=== PATIENT | male | born 1975 | race Native Hawaiian/Other Pacific Islander ===

== ENCOUNTER 2021-11-15 21:50 | Emergency (ER) | payer MEDICARE ==
--- NOTE | 2021-11-15 21:54 | ERPHSYRPT ---
- History of Present Illness Time Seen by Provider: 11/15/21 21:54 Source: patient Exam Limitations: no limitations Physician History: This is an overweight 46-year-old white male patient who has a history of hypertension and hyperglycemia issues and presents normotensive and normoglycemic. Patient states that over the last month, intermittently, he feels dizzy as if he is going to pass out. 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 He currently has no chest pain. He has no abdominal pain. He has no nausea vomiting or diarrhea. Currently, he does not have those symptoms. He has been seen and evaluated by the [facility] and an outpatient nurse practitioner as recent as this morning. He feels he needs a more thorough work-up and that is why he came to the emergency department. Timing/Duration: intermittent, other (Present over a month.) Severity: mild Associated Symptoms: denies symptoms, other (He denies symptoms now but he has felt as though he was going to pass out intermittently in the last 4 weeks.) Travel Risk - International Travel Have you traveled outside of the country in past 3 weeks: No - Coronavirus Screening Are you exhibiting any of the following symptoms?: No Close contact with a COVID-19 positive Pt in past 14-21 Days: No - Review of Systems Constitutional: No Symptoms Eyes: No Symptoms Ears, Nose, & Throat: No Symptoms Respiratory: No Symptoms Cardiac: No Symptoms Abdominal/Gastrointestinal: No Symptoms Genitourinary Symptoms: No Symptoms Musculoskeletal: No Symptoms Skin: No Symptoms Neurological: No Symptoms Psychological: No Symptoms Endocrine: No Symptoms Hematologic/Lymphatic: No Symptoms Immunological/Allergic: No Symptoms All Other Systems: Reviewed and Negative - Past Medical History Pertinent Past Medical History: Yes - Past Surgical History Past Surgical History: Yes - Nursing Vital Signs Nursing Vital Signs: Initial Vital Signs Temperature 97.3 F 11/15/21 22:04 Pulse Rate 65 11/15/21 22:04 Respiratory Rate 16 11/15/21 22:04 Blood Pressure 134/81 11/15/21 22:04 O2 Sat by Pulse Oximetry 100 11/15/21 22:04 Pain Scale Pain Intensity 0 - Physical Exam General Appearance: no apparent distress, alert, anxiety, obese Eye Exam: PERRL/EOMI, eyes nml inspection Ears, Nose, Throat Exam: normal ENT inspection, moist mucous membranes Neck Exam: normal inspection, non-tender, supple, full range of motion Respiratory Exam: normal breath sounds, lungs clear, airway intact, No chest tenderness, No respiratory distress Cardiovascular Exam: regular rate/rhythm, normal heart sounds, normal peripheral pulses Gastrointestinal/Abdomen Exam: soft, normal bowel sounds, No tenderness Rectal Exam: not done Back Exam: normal inspection, normal range of motion, No CVA tenderness, No vertebral tenderness Extremity Exam: normal inspection, normal range of motion, pelvis stable Neurologic Exam: alert, oriented x 3, cooperative, creative perfumer II-XII nml as tested, normal mood/affect, nml cerebellar function, nml station & gait, sensation nml Skin Exam: normal color, warm, dry Lymphatic Exam: No adenopathy SpO2 Interpretation: normal O2 Delivery: Room Air - Course Nursing assessment & vital signs reviewed: Yes EKG Interpreted by Me: RATE (70), Sinus Rhythm, NORMAL AXIS, NORMAL INTERVALS, NORMAL QRS, NORMAL ST-T, Other Ordered Tests: Active Orders 24 hr Category Date Time Status EKG-ER Only STAT Care 11/15/21 22:51 Active IV Insertion STAT Care 11/15/21 22:51 Active POCT Glucose Check STAT Care 11/15/21 22:25 Active HEAD WITHOUT CONTRAST [CT] Stat Exams 11/15/21 22:52 Taken CBC W DIFF Stat Lab 11/15/21 23:00 Completed CMP Stat Lab 11/15/21 23:00 Completed POCT GLUCOSE Stat Lab 11/15/21 22:25 Completed TROPONIN Q4H Lab 11/15/21 23:00 Completed TROPONIN Q4H Lab 11/16/21 03:00 Ordered TROPONIN Q4H Lab 11/16/21 07:00 Ordered UA W/RFX CULTURE Stat Lab 11/15/21 23:18 Completed Lab/Rad Data: Laboratory Result Diagrams 11/15/21 23:00 11/15/21 23:00 Laboratory Results 11/15/21 11/15/21 11/15/21 Range/Units 23:18 23:00 23:00 WBC (4.0-10.5) x10^3/uL RBC (4.1-5.6) x10^6/uL Hgb (12.5-18.0) g/dL Hct (42-50) % MCV (78-100) fL MCH (26-32) pg MCHC (32-36) g/dL RDW (11.5-14.0) % Plt Count (150-450) x10^3/uL MPV (7.5-11.0) fL Gran % (36.0-66.0) % Immature Gran % (Auto) (0.00-0.4) % Nucleat RBC Rel Count (0.00-0.1) % Eos # (Auto) (0-0.5) x10^3/uL Immature Gran # (Auto) (0.00-0.03) x10^3u/L Absolute Lymphs (auto) (1.0-4.6) x10^3/uL Absolute Monos (auto) (0.0-1.3) x10^3/uL Absolute Nucleated RBC (0.00-0.01) x10^3u/L Lymphocytes % (24.0-44.0) % Monocytes % (0.0-12.0) % Eosinophils % (0.00-5.0) % Basophils % (0.0-0.4) % Absolute Granulocytes (1.4-6.9) x10^3/uL Basophils # (0-0.4) x10^3/uL Sodium 139 (137-145) mmol/L Potassium 4.0 (3.5-5.1) mmol/L Chloride 104 (98-107) mmol/L Carbon Dioxide 22 (22-30) mmol/L Anion Gap 16.8 H (5-15) MEQ/L BUN 16 (9-20) mg/dL Creatinine 1.18 (0.66-1.25) mg/dL Estimated GFR > 60.0 ML/MIN Glucose 137 H (74-106) mg/dL POC Glucometer (74 to 106) mg/dL Calcium 9.6 (8.4-10.2) mg/dL Total Bilirubin 0.50 (0.2-1.3) mg/dL AST 40 (17-59) U/L ALT 66 H (0-50) U/L Alkaline Phosphatase 71 (38-126) U/L Troponin I < 0.012 (0.000-0.034) ng/mL Serum Total Protein 8.1 (6.3-8.2) g/dL Albumin 4.6 (3.5-5.0) g/dL Urinalys Dipstick Clnc MAIN LAB Urine Color YELLOW (YELLOW) Urine Appearance CLEAR (CLEAR) Urine pH 6.0 (5-6) Ur Specific [place] 1.020 (1.005-1.025) POC Urine Protein Conf NEGATIVE (Negative) Urine Ketones NEGATIVE (NEGATIVE) Urine Nitrite NEGATIVE (NEGATIVE) Urine Bilirubin NEGATIVE (NEGATIVE) Urine Urobilinogen 1 (0-1) mg/dL Urine Leukocytes NEGATIVE (NEGATIVE) Urine WBC (Auto) 0-2 (0-5) /HPF Urine RBC (Auto) 0-2 (0-2) /HPF U Epithel Cells (Auto) Not Reportable Urine Bacteria (Auto) NONE (NEGATIVE) /HPF Urine RBC NEGATIVE (0-5) Brennan/ul Ur Culture Indicated? NO Urine Glucose NEGATIVE (NEGATIVE) mg/dL 11/15/21 11/15/21 Range/Units 23:00 22:25 WBC 10.4 (4.0-10.5) x10^3/uL RBC 5.31 (4.1-5.6) x10^6/uL Hgb 16.2 (12.5-18.0) g/dL Hct 49.0 (42-50) % MCV 92.3 (78-100) fL MCH 30.5 (26-32) pg MCHC 33.1 (32-36) g/dL RDW 13.2 (11.5-14.0) % Plt Count 271 (150-450) x10^3/uL MPV 10.3 (7.5-11.0) fL Gran % 54.0 (36.0-66.0) % Immature Gran % (Auto) 0.4 (0.00-0.4) % Nucleat RBC Rel Count 0.0 (0.00-0.1) % Eos # (Auto) 0.31 (0-0.5) x10^3/uL Immature Gran # (Auto) 0.04 H (0.00-0.03) x10^3u/L Absolute Lymphs (auto) 3.16 (1.0-4.6) x10^3/uL Absolute Monos (auto) 1.16 (0.0-1.3) x10^3/uL Absolute Nucleated RBC 0.00 (0.00-0.01) x10^3u/L Lymphocytes % 30.4 (24.0-44.0) % Monocytes % 11.1 (0.0-12.0) % Eosinophils % 3.0 (0.00-5.0) % Basophils % 1.1 (0.0-0.4) % Absolute Granulocytes 5.63 (1.4-6.9) x10^3/uL Basophils # 0.11 (0-0.4) x10^3/uL Sodium (137-145) mmol/L Potassium (3.5-5.1) mmol/L Chloride (98-107) mmol/L Carbon Dioxide (22-30) mmol/L Anion Gap (5-15) MEQ/L BUN (9-20) mg/dL Creatinine (0.66-1.25) mg/dL Estimated GFR ML/MIN Glucose (74-106) mg/dL POC Glucometer 133 H (74 to 106) mg/dL Calcium (8.4-10.2) mg/dL Total Bilirubin (0.2-1.3) mg/dL AST (17-59) U/L ALT (0-50) U/L Alkaline Phosphatase (38-126) U/L Troponin I (0.000-0.034) ng/mL Serum Total Protein (6.3-8.2) g/dL Albumin (3.5-5.0) g/dL Urinalys Dipstick Clnc Urine Color (YELLOW) Urine Appearance (CLEAR) Urine pH (5-6) Ur Specific [place] (1.005-1.025) POC Urine Protein Conf (Negative) Urine Ketones (NEGATIVE) Urine Nitrite (NEGATIVE) Urine Bilirubin (NEGATIVE) Urine Urobilinogen (0-1) mg/dL Urine Leukocytes (NEGATIVE) Urine WBC (Auto) (0-5) /HPF Urine RBC (Auto) (0-2) /HPF U Epithel Cells (Auto) Urine Bacteria (Auto) (NEGATIVE) /HPF Urine RBC (0-5) Brennan/ul Ur Culture Indicated? Urine Glucose (NEGATIVE) mg/dL - Progress Progress: unchanged, re-examined Progress Note: 11/15/21 23:58 CT scan of the head without contrast shows no acute intracranial abnormality. Counseled pt/family regarding: lab results, diagnosis, need for follow-up, rad results - Departure Departure Disposition: Home Clinical Impression: Near syncope Condition: Stable Critical Care Time: No Referrals: DOCTOR,NO FAMILY [Primary Care Provider] - Follow up/PCP as directed Additional Instructions: Wear of the Holter monitor as instructed. Continue your medication and monitoring of your blood sugar and blood pressure as instructed. Monitor your blood pressure 3 times a day only (morning noon and night) and keep a daily log of these values. Follow-up with the [facility] or your outpatient nurse practitioner on 11/18/2021 for further evaluation management.
[2021-11-15 23:08] LABS: Absolute Neutrophil Ct (ANC) 5.63 x10^3/uL (1.4-6.9); Basophil (Absolute #) 0.11 x10^3/uL (0-0.4); Eosinophil (Absolute #) 0.31 x10^3/uL (0-0.5); Hemoglobin 16.2 g/dL (12.5-18.0); Lymphocyte (Absolute #) 3.16 x10^3/uL (1.0-4.6); Lymphocytes % 30.4 % (24.0-44.0); Mean Cell Volume 92.3 fL (78-100); Mean Corpuscular Hemoglobin 30.5 pg (26-32); Mean Corpuscular Hgb Concent. 33.1 g/dL (32-36); Mean Platelet Volume 10.3 fL (7.5-11.0); Monocyte (Absolute #) 1.16 x10^3/uL (0.0-1.3); Monocytes % 11.1 % (0.0-12.0); Platelet Count 271 x10^3/uL (150-450); Red Blood Count 5.31 x10^6/uL (4.1-5.6); Red Cell Distribution Width 13.2 % (11.5-14.0); White Blood Count 10.4 x10^3/uL (4.0-10.5)
[2021-11-15 23:23] LABS: ALBUMIN 4.6 g/dL (3.5-5.0); ALKALINE PHOSPHATASE 71 U/L (38-126); ANION GAP 16.8 MEQ/L (5-15); BLOOD UREA NITROGEN 16 mg/dL (9-20); CHLORIDE 104 mmol/L (98-107); Calcium 9.6 mg/dL (8.4-10.2); Carbon Dioxide 22 mmol/L (22-30); Creatinine 1 1.18 mg/dL (0.66-1.25); EST GLOMERULAR FILTRATION RATE > 60.0 ML/MIN; Glucose 137 mg/dL (74-106); SGOT/AST 40 U/L (17-59); SGPT/ALT 66 U/L (0-50); SODIUM 139 mmol/L (137-145); Total Protein 8.1 g/dL (6.3-8.2)
[2021-11-15 23:23] LABS: Appearance CLEAR (CLEAR); Glucose NEGATIVE (NEGATIVE)
[2021-11-15 23:24] LABS: Bilirubin NEGATIVE (NEGATIVE); Dipstick done @ ? MAIN LAB; Ketones NEGATIVE (NEGATIVE); Nitrite NEGATIVE (NEGATIVE); Protein,Urine Dip NEGATIVE (Negative); RBC NEGATIVE Ery/ul (0-5); Urobilinogen 1 mg/dL (0-1)
[2021-11-15 23:25] LABS: RBC 0-2 /HPF (0-2); WBC 0-2 /HPF (0-5)
[2021-11-15 23:28] LABS: Urine Cultured Indicated? NO
[2021-11-16 00:05] VITALS: BP 120/76; PULSE 76; O2SAT 95
--- NOTE | 2021-11-16 06:04 | XRAY ---
Indication: Near syncope. Hypertension. Multiple contiguous axial images obtained through the head without contrast. Comparison: None Normal appearing brain parenchyma, ventricles, and bony calvarium for patient's age. Partially visualized 2.2 cm right maxillary sinus polyp/retention cyst. Remaining visualized paranasal sinuses and mastoid air cells are clear. Impression: Normal CT head without contrast exam. Incidental right maxillary sinus polyp/retention cyst. Comment: Preliminary interpretation made by [facility]. No critical discrepancy.
== END 2021-11-16 00:31 | disposition home or self-care (01) ==
LOC: ED 21:50
DX: R55 Syncope and collapse (principal); R42 Dizziness and giddiness
CPT/HCPCS: 36000; 36415; 70450; 80053; 80061; 81015; 82947; 83036; 83721; 84443; 84484; 85025; 93005; 93225; 99284

== ENCOUNTER 2021-11-19 19:06 | Emergency (ER) | payer MEDICARE ==
[2021-11-19 20:11] VITALS: O2SAT 97
--- NOTE | 2021-11-19 20:45 | ERPHSYRPT ---
- History of Present Illness Time Seen by Provider: 11/19/21 19:30 Source: patient Exam Limitations: no limitations Patient Subjective Stated Complaint: pt states that he has been feeling headache and uncontrolled blood sugar and dizziness since october. pt states he was never diagnosed with diabetes. states his hba1c was 5.8 when he was here in the ER on thursday. pt states he was told to come back to ER if his symptoms as mentioned above returned. Triage Nursing Assessment: pt alert and oriented, able to answer all queations appropriatly. Pt is stating that hew feels that his blood sugar is going back up at this time as he is having a headache and feeling anxious, states the pain in his head is 4/10. Physician History: Patient a 46-year-old male presents to emergency department for evaluation. Patient was in our ED for the same complaints. Patient is experiencing intermittent spikes of headache sugar dizziness and anxiety. Patient had a complete work-up in our ED last Thursday 4 days ago. The work-up was negative. Patient here in our ED with the same complaints. Patient currently asymptomatic. Symptoms are mild to moderate when present. No specific worsening improving factors. Patient voices no other complaints or concerns at this time. Portions of this note were created with voice recognition technology. There may be grammatical, spelling, punctuation or sound alike errors Timing/Duration: today Severity: mild Modifying Factors: Improves With: nothing Associated Symptoms: denies symptoms Allergies/Adverse Reactions: soft drinks Allergy (Uncoded 11/19/21 19:38) Hx Tetanus, Diphtheria Vaccination/Date Given: Yes Hx Influenza Vaccination/Date Given: No Hx Pneumococcal Vaccination/Date Given: No Travel Risk - International Travel Have you traveled outside of the country in past 3 weeks: No - Coronavirus Screening Are you exhibiting any of the following symptoms?: No Close contact with a COVID-19 positive Pt in past 14-21 Days: No - Vaccine Status Have you recieved a Covid-19 vaccination: Yes Child [employer] 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 - Vaccination Dates Date of 2cond Vaccination (if applicable): unknown - Review of Systems Constitutional: No Symptoms, No Fever, No Chills Eyes: No Symptoms Ears, Nose, & Throat: No Symptoms Respiratory: No Symptoms, No Cough, No Dyspnea Cardiac: No Symptoms, No Chest Pain, No Edema, No Syncope Abdominal/Gastrointestinal: No Symptoms, No Abdominal Pain, No Nausea, No Vomiting, No Diarrhea Genitourinary Symptoms: No Symptoms, No Dysuria Musculoskeletal: No Symptoms, No Back Pain, No Neck Pain Skin: No Symptoms, No Rash Neurological: No Symptoms, No Dizziness, No Focal Weakness, No Sensory Changes Psychological: No Symptoms Endocrine: No Symptoms Hematologic/Lymphatic: No Symptoms Immunological/Allergic: No Symptoms All Other Systems: Reviewed and Negative - Past Medical History Pertinent Past Medical History: Yes Other Medical History: chronic back pain with radiopathy. 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 ptsd - Past Surgical History Past Surgical History: Yes Other Surgical History: l5 s1 discectomy - Social History Smoking Status: Former smoker Exposure to second hand smoke: No Drug Use: none Patient Lives Alone: Yes - Nursing Vital Signs Nursing Vital Signs: Initial Vital Signs Temperature 97.8 F 11/19/21 19:22 Pulse Rate 76 11/19/21 19:22 Respiratory Rate 18 11/19/21 19:22 Blood Pressure 149/72 11/19/21 19:22 O2 Sat by Pulse Oximetry 98 11/19/21 19:22 Pain Scale Pain Intensity 4 - Physical Exam General Appearance: no apparent distress, alert Eye Exam: PERRL/EOMI, eyes nml inspection Ears, Nose, Throat Exam: normal ENT inspection, TMs normal, pharynx normal, moist mucous membranes Neck Exam: normal inspection, non-tender, supple, full range of motion Respiratory Exam: normal breath sounds, lungs clear, airway intact, No respiratory distress Cardiovascular Exam: regular rate/rhythm, normal heart sounds, normal peripheral pulses Gastrointestinal/Abdomen Exam: soft, normal bowel sounds, No tenderness, No mass Back Exam: normal inspection, normal range of motion, No CVA tenderness, No vertebral tenderness Extremity Exam: normal inspection, normal range of motion, pelvis stable Neurologic Exam: alert, oriented x 3, cooperative, normal mood/affect, nml cerebellar function, nml station & gait, sensation nml, No motor deficits Skin Exam: normal color, warm, dry, No rash Lymphatic Exam: No adenopathy SpO2 Interpretation: normal SpO2: 97 O2 Delivery: Room Air - Course Nursing assessment & vital signs reviewed: Yes Ordered Tests: Active Orders 24 hr Category Date Time Status POCT GLUCOSE Stat Lab 11/19/21 19:42 Completed Lab/Rad Data: Laboratory Results 11/19/21 Range/Units 19:42 POC Glucometer 123 H (74 to 106) mg/dL - Progress Progress: improved Progress Note: Patient symptomology concerning for possible pheochromocytoma. This will require an extensive outpatient work-up. [facility] however [facility] months. Patient tried to get in with Dr. Mcmahon however they are not excepting patients at this time. I spoke to Dr. Francois who accepts new patients. She agrees to see patient next week for further evaluation and treatment. No work-up performed in our ED. Portions of this note were created with voice recognition technology. There may be grammatical, spelling, punctuation or sound alike errors 11/19/21 21:14 11/19/21 21:[address] Tammy Will see patient in: office Counseled pt/family regarding: need for follow-up - Departure Departure Disposition: Home Clinical Impression: Encounter for medical screening examination, Essential hypertension Condition: Stable Critical Care Time: No Referrals: DOCTOR,NO FAMILY [Primary Care Provider] - Follow up/PCP as directed MORGAN SIMONS DO [ACTIVE STAFF] - Follow up/PCP as directed Additional Instructions: Discharge/Care Plan WENDI MATHEWS was seen on 11/19/21 in the Emergency Room. The patient was counseled regarding Diagnosis,Lab results, Imaging studies, need for follow up and when to return to the Emergency Room. Prescriptions given: Discharge Note I have spoken with the patient and/or caregivers. I have explained the patient's condition, diagnosis and treatment plan based on the information available to me at this time. I have answered the patient's and/or caregiver's questions and addressed any concerns. The patient and/or caregivers have as good understanding of the patient's diagnosis, condition and treatment plan as can be expected at this point. The vital signs have been stable. The patient's condition is stable and appropriate for discharge from the emergency department. The patient will pursue further outpatient evaluation with the primary care physician or other designated or consulting physician as outlined in the discharge instructions. The patient and/or caregivers are agreeable to this plan of care and follow-up instructions have been explained in detail. The patient and/or caregivers have received these instruction. The patient/and or caregivers are aware that any significant change in condition or worsening of symptoms should prompt an immediate return to this or the closest emergency department or call 911.
[2021-11-19 21:24] VITALS: BP 146/90; PULSE 73
== END 2021-11-19 21:21 | disposition home or self-care (01) ==
LOC: ED 19:06
DX: Z71.1 Person with feared health complaint in whom no diagnosis is made (principal); I10 Essential (primary) hypertension; R51.9 Headache, unspecified; R42 Dizziness and giddiness; F41.9 Anxiety disorder, unspecified
CPT/HCPCS: 82947; 99281

== ENCOUNTER 2022-01-15 13:33 | Emergency (ER) | payer MEDICARE, OTHER ==
[2022-01-15 14:32] LABS: Absolute Neutrophil Ct (ANC) 5.25 x10^3/uL (1.4-6.9); Basophil (Absolute #) 0.08 x10^3/uL (0-0.4); Eosinophil % 2.5 % (0.00-5.0); Eosinophil (Absolute #) 0.23 x10^3/uL (0-0.5); Hematocrit 50.9 % (42-50); Hemoglobin 16.5 g/dL (12.5-18.0); Lymphocyte (Absolute #) 2.84 x10^3/uL (1.0-4.6); Lymphocytes % 30.6 % (24.0-44.0); Mean Cell Volume 94.3 fL (78-100); Mean Corpuscular Hemoglobin 30.6 pg (26-32); Mean Corpuscular Hgb Concent. 32.4 g/dL (32-36); Mean Platelet Volume 10.1 fL (7.5-11.0); Monocyte (Absolute #) 0.82 x10^3/uL (0.0-1.3); Monocytes % 8.8 % (0.0-12.0); Neutrophil % 56.7 % (36.0-66.0); Platelet Count 248 x10^3/uL (150-450); Red Cell Distribution Width 13.5 % (11.5-14.0); White Blood Count 9.3 x10^3/uL (4.0-10.5)
[2022-01-15 14:55] LABS: ACETAMINOPHEN < 10 ug/ml (10-30); ALBUMIN 4.7 g/dL (3.5-5.0); ALKALINE PHOSPHATASE 80 U/L (38-126); ANION GAP 14.1 MEQ/L (5-15); BLOOD UREA NITROGEN 16 mg/dL (9-20); CHLORIDE 104 mmol/L (98-107); Calcium 9.6 mg/dL (8.4-10.2); Carbon Dioxide 23 mmol/L (22-30); Creatinine 1 1.19 mg/dL (0.66-1.25); EST GLOMERULAR FILTRATION RATE > 60.0 ML/MIN; ETHYL ALCOHOL < 10 mg/dL (0-10); Glucose 100 mg/dL (74-106); Potassium 4.1 mmol/L (3.5-5.1); SALICYLATE < 1.0 mg/dL (2-20); SGOT/AST 49 U/L (17-59); SGPT/ALT 91 U/L (0-50); SODIUM 138 mmol/L (137-145); Total Protein 8.3 g/dL (6.3-8.2)
--- NOTE | 2022-01-15 15:00 | ERPHSYRPT ---
- History of Present Illness Time Seen by Provider: 01/15/22 13:35 Source: patient Exam Limitations: no limitations Patient Subjective Stated Complaint: Pt has days where he feels high anxiety and can barely function and then other days he is fine, he is taking lorazepam 0.5mg as needed and some days it helps and other days it doesn't, he has started going into dark places and is beginning to feel unsafe Triage Nursing Assessment: Pt brought self to the ER, vitals wnl, denies any new pains, found out a couple of weeks ago about a thyroid issue and was just recently started on thyroid medicine, gave his weapons to his son and told him to lock them up from him, wants help before things get further out of hand, thinks it is a hormonal problem since he had covid, hasn't been the same since, pulses normal, skin n/w/d Physician History: Patient is here with some anxiousness, other anxiety issues. States it all s tarted a few weeks ago when he got COVID. I did discuss with his PCP over the phone, Dr. Francois. Per her, patient has taken all the guns out of the house. They have given all the guns to the patient's son. He is a . Timing/Duration: week(s) (2 weeks) Severity of Symptoms-Max: moderate Severity of Symptoms-Current: moderate Context related to: other Suicidal thoughts: other (He has proactively taken all the guns out of the house) Previous symptoms: no prior history, other (Patient has taken benzodiazepines in the past for this.) Allergies/Adverse Reactions: soft drinks Allergy (Uncoded 01/15/22 14:09) Home Medications: Cyanocobalamin 1000 Mcg/ml [Cyanocobalamin B-12 1000 MCG/ML] 1,000 mcg IJ UD 01/15/22 [History] Levothyroxine Sodium 25 mcg PO DAILY 01/15/22 [History] Lorazepam 0.5 mg [Ativan 0.5 MG] 0.5 mg PO UD 01/15/22 [History] Propranolol HCl 80 mg PO BID 01/15/22 [History] Hx Tetanus, Diphtheria Vaccination/Date Given: Yes Hx Influenza Vaccination/Date Given: No Hx Pneumococcal Vaccination/Date Given: No Travel Risk - International Travel Have you traveled outside of the country in past 3 weeks: No - Coronavirus Screening Are you exhibiting any of the following symptoms?: No Close contact with a COVID-19 positive Pt in past 14-21 Days: No - Vaccine Status Have you recieved a Covid-19 vaccination: Yes Process Eng: Moderna - Vaccination Dates Date of 2cond Vaccination (if applicable): unknown - Past Medical History Pertinent Past Medical History: Yes Other Medical History: chronic back pain with radiopathy. 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 ptsd - Past Surgical History Past Surgical History: Yes Other Surgical History: l5 s1 discectomy - Social History Smoking Status: Former smoker Exposure to second hand smoke: No Drug Use: none Patient Lives Alone: No - Review of Systems Constitutional: No Fever, No Chills Eyes: No Symptoms Ears, Nose, & Throat: No Symptoms Respiratory: No Cough, No Dyspnea Cardiac: No Chest Pain, No Edema, No Syncope Abdominal/Gastrointestinal: No Abdominal Pain, No Nausea, No Vomiting, No Diarrh ea Genitourinary Symptoms: No Dysuria Musculoskeletal: No Back Pain, No Neck Pain Skin: No Rash Neurological: No Dizziness, No Focal Weakness, No Sensory Changes Psychological: Anxiety Endocrine: No Symptoms All Other Systems: Reviewed and Negative - Nursing Vital Signs Nursing Vital Signs: Initial Vital Signs Temperature 97.4 F 01/15/22 13:45 Pulse Rate 76 01/15/22 13:45 Blood Pressure 122/76 01/15/22 13:45 O2 Sat by Pulse Oximetry 96 01/15/22 13:45 Pain Scale Pain Intensity 0 - Physical Exam General Appearance: no apparent distress Eyes, Ears, Nose, Throat Exam: normal ENT inspection, moist mucous membranes Neck Exam: normal inspection, non-tender, supple Respiratory Exam: normal breath sounds, lungs clear, No respiratory distress Cardiovascular Exam: regular rate/rhythm, No edema Gastrointestinal/Abdominal Exam: soft, No tenderness, No distention Extremities Exam: normal inspection, normal range of motion, No evidence of injury, No edema Current Suicidality: denies suicide plan Neurological Exam: alert, service counselor II-XII nml as tested, oriented x 3 Skin Exam: normal color, warm, dry, No rash SpO2: 96 - Course Nursing assessment & vital signs reviewed: Yes EKG Interpreted by Me: Sinus Rhythm Ordered Tests: Active Orders 24 hr Category Date Time Status EKG-ER Only STAT Care 01/15/22 14:16 Active ACETAMINOPHEN Stat Lab 01/15/22 14:28 Completed CBC W DIFF Stat Lab 01/15/22 14:28 Completed CMP Stat Lab 01/15/22 14:28 Completed ETHYL ALCOHOL Stat Lab 01/15/22 14:28 Completed LITHIUM Stat Lab 01/15/22 14:28 Completed SALICYLATE Stat Lab 01/15/22 14:28 Completed UA W/RFX CULTURE Stat Lab 01/15/22 15:36 Completed Urine Triage Profile Stat Lab 01/15/22 15:36 Completed Lab/Rad Data: Laboratory Result Diagrams 01/15/22 14:28 01/15/22 14:28 Laboratory Results 01/15/22 01/15/22 01/15/22 Range/Units 16:28 15:36 15:36 WBC (4.0-10.5) x10^3/uL RBC (4.1-5.6) x10^6/uL Hgb (12.5-18.0) g/dL Hct (42-50) % MCV (78-100) fL MCH (26-32) pg MCHC (32-36) g/dL RDW (11.5-14.0) % Plt Count (150-450) x10^3/uL MPV (7.5-11.0) fL Gran % (36.0-66.0) % Immature Gran % (Auto) (0.00-0.4) % Nucleat RBC Rel Count (0.00-0.1) % Eos # (Auto) (0-0.5) x10^3/uL Immature Gran # (Auto) (0.00-0.03) x10^3u/L Absolute Lymphs (auto) (1.0-4.6) x10^3/uL Absolute Monos (auto) (0.0-1.3) x10^3/uL Absolute Nucleated RBC (0.00-0.01) x10^3u/L Lymphocytes % (24.0-44.0) % Monocytes % (0.0-12.0) % Eosinophils % (0.00-5.0) % Basophils % (0.0-0.4) % Absolute Granulocytes (1.4-6.9) x10^3/uL Basophils # (0-0.4) x10^3/uL Sodium (137-145) mmol/L Potassium (3.5-5.1) mmol/L Chloride (98-107) mmol/L Carbon Dioxide (22-30) mmol/L Anion Gap (5-15) MEQ/L BUN (9-20) mg/dL Creatinine (0.66-1.25) mg/dL Estimated GFR ML/MIN Glucose (74-106) mg/dL Calcium (8.4-10.2) mg/dL Total Bilirubin (0.2-1.3) mg/dL AST (17-59) U/L ALT (0-50) U/L Alkaline Phosphatase (38-126) U/L Serum Total Protein (6.3-8.2) g/dL Albumin (3.5-5.0) g/dL Urinalys Dipstick Clnc MAIN LAB Urine Color YELLOW (YELLOW) Urine Appearance CLEAR (CLEAR) Urine pH 5.5 (5-6) Ur Specific Lilly 1.010 (1.005-1.025) POC Urine Protein Conf NEGATIVE (Negative) Urine Ketones NEGATIVE (NEGATIVE) Urine Nitrite NEGATIVE (NEGATIVE) Urine Bilirubin NEGATIVE (NEGATIVE) Urine Urobilinogen 0.2 (0-1) mg/dL Urine Leukocytes NEGATIVE (NEGATIVE) Urine WBC (Auto) NONE (0-5) /HPF Urine RBC (Auto) NONE (0-2) /HPF U Epithel Cells (Auto) NONE (FEW) /HPF Urine Bacteria (Auto) NONE (NEGATIVE) /HPF Urine RBC NEGATIVE (0-5) Brennan/ul Ur Culture Indicated? NO Urine Glucose NEGATIVE (NEGATIVE) mg/dL Salicylates (2-20) mg/dL Urine Opiates Level NEGATIVE (NEGATIVE) Ur Methadone NEGATIVE (NEGATIVE) Acetaminophen (10-30) ug/ml Urine Barbiturates NEGATIVE (NEGATIVE) Ur Phencyclidine (PCP) NEGATIVE (NEGATIVE) Urine Amphetamine NEGATIVE (NEGATIVE) U Benzodiazepine Level NEGATIVE (NEGATIVE) [place] (0.60-1.20) mmol/L Urine Cocaine NEGATIVE (NEGATIVE) Urine Marijuana (THC) NEGATIVE (NEGATIVE) Ethyl Alcohol (0-10) mg/dL Influenza Type A Ag NEGATIVE (NEGATIVE) Influenza Type B Ag NEGATIVE (NEGATIVE) RSV (PCR) NEGATIVE (Negative) SARS-CoV-2 (PCR) NEGATIVE (NEGATIVE) 01/15/22 01/15/22 01/15/22 Range/Units 14:28 14:28 14:28 WBC 9.3 (4.0-10.5) x10^3/uL RBC 5.40 (4.1-5.6) x10^6/uL Hgb 16.5 (12.5-18.0) g/dL Hct 50.9 H (42-50) % MCV 94.3 (78-100) fL MCH 30.6 (26-32) pg MCHC 32.4 (32-36) g/dL RDW 13.5 (11.5-14.0) % Plt Count 248 (150-450) x10^3/uL MPV 10.1 (7.5-11.0) fL Gran % 56.7 (36.0-66.0) % Immature Gran % (Auto) 0.5 H (0.00-0.4) % Nucleat RBC Rel Count 0.0 (0.00-0.1) % Eos # (Auto) 0.23 (0-0.5) x10^3/uL Immature Gran # (Auto) 0.05 H (0.00-0.03) x10^3u/L Absolute Lymphs (auto) 2.84 (1.0-4.6) x10^3/uL Absolute Monos (auto) 0.82 (0.0-1.3) x10^3/uL Absolute Nucleated RBC 0.00 (0.00-0.01) x10^3u/L Lymphocytes % 30.6 (24.0-44.0) % Monocytes % 8.8 (0.0-12.0) % Eosinophils % 2.5 (0.00-5.0) % Basophils % 0.9 (0.0-0.4) % Absolute Granulocytes 5.25 (1.4-6.9) x10^3/uL Basophils # 0.08 (0-0.4) x10^3/uL Sodium 138 (137-145) mmol/L Potassium 4.1 (3.5-5.1) mmol/L Chloride 104 (98-107) mmol/L Carbon Dioxide 23 (22-30) mmol/L Anion Gap 14.1 (5-15) MEQ/L BUN 16 (9-20) mg/dL Creatinine 1.19 (0.66-1.25) mg/dL Estimated GFR > 60.0 ML/MIN Glucose 100 (74-106) mg/dL Calcium 9.6 (8.4-10.2) mg/dL Total Bilirubin 0.80 (0.2-1.3) mg/dL AST 49 (17-59) U/L ALT 91 H (0-50) U/L Alkaline Phosphatase 80 (38-126) U/L Serum Total Protein 8.3 H (6.3-8.2) g/dL Albumin 4.7 (3.5-5.0) g/dL Urinalys Dipstick Clnc Urine Color (YELLOW) Urine Appearance (CLEAR) Urine pH (5-6) Ur Specific Lilly (1.005-1.025) POC Urine Protein Conf (Negative) Urine Ketones (NEGATIVE) Urine Nitrite (NEGATIVE) Urine Bilirubin (NEGATIVE) Urine Urobilinogen (0-1) mg/dL Urine Leukocytes (NEGATIVE) Urine WBC (Auto) (0-5) /HPF Urine RBC (Auto) (0-2) /HPF U Epithel Cells (Auto) (FEW) /HPF Urine Bacteria (Auto) (NEGATIVE) /HPF Urine RBC (0-5) Brennan/ul Ur Culture Indicated? Urine Glucose (NEGATIVE) mg/dL Salicylates < 1.0 L (2-20) mg/dL Urine Opiates Level (NEGATIVE) Ur Methadone (NEGATIVE) Acetaminophen < 10 L (10-30) ug/ml Urine Barbiturates (NEGATIVE) Ur Phencyclidine (PCP) (NEGATIVE) Urine Amphetamine (NEGATIVE) U Benzodiazepine Level (NEGATIVE) [place] < 0.2 L (0.60-1.20) mmol/L Urine Cocaine (NEGATIVE) Urine Marijuana (THC) (NEGATIVE) Ethyl Alcohol < 10 (0-10) mg/dL Influenza Type A Ag (NEGATIVE) Influenza Type B Ag (NEGATIVE) RSV (PCR) (Negative) SARS-CoV-2 (PCR) (NEGATIVE) - Progress Progress Note: 01/15/22 14:59 We will plan on doing a medical clearance on the patient. Patient will need to be evaluated by telepsychiatry for inpatient placement or not. 01/15/22 18:39 At the time of handoff I did discuss the above in detail with Dr. Cervantes. He will follow-up on all labs, imaging and reexamine the patient. The ultimate disposition of the patient per results and Dr. Cervantes's reexam. Counseled pt/family regarding: lab results, need for follow-up - Departure Clinical Impression: Acute anxiety Condition: Stable Critical Care Time: No Referrals: DOCTOR,NO FAMILY [NON-STAFF PHY W/O PRIVILEGES] - Follow up/PCP as directed
[2022-01-15 16:02] LABS: Appearance CLEAR (CLEAR); Bilirubin NEGATIVE (NEGATIVE); Glucose NEGATIVE (NEGATIVE); Ketones NEGATIVE (NEGATIVE)
[2022-01-15 16:03] LABS: Dipstick done @ ? MAIN LAB; Nitrite NEGATIVE (NEGATIVE); Ph 5.5 (5-6); Protein,Urine Dip NEGATIVE (Negative); RBC NEGATIVE Ery/ul (0-5); Urobilinogen 0.2 mg/dL (0-1)
[2022-01-15 16:08] LABS: Urine Cultured Indicated? NO
[2022-01-15 16:22] LABS: Barbiturate,Urine NEGATIVE (NEGATIVE); Benzodiazepine,Urine NEGATIVE (NEGATIVE); Cocaine,Urine NEGATIVE (NEGATIVE); Methadone,Urine NEGATIVE (NEGATIVE); Opiate,Urine NEGATIVE (NEGATIVE); PCP,Urine NEGATIVE (NEGATIVE); THC,Urine NEGATIVE (NEGATIVE)
[2022-01-15 16:38] LABS: Amphetamine,Urine NEGATIVE (NEGATIVE)
[2022-01-15 17:07] LABS: INFLUENZA A NEGATIVE (NEGATIVE); INFLUENZA B NEGATIVE (NEGATIVE); RESPIRATORY SYNCTIAL VIRUS NEGATIVE (Negative); SARS-CoV-2 Xpert Express NEGATIVE (NEGATIVE)
[2022-01-15 19:40] VITALS: BP 133/107; PULSE 66; O2SAT 100
== END 2022-01-15 19:40 | disposition home or self-care (01) ==
LOC: ED 13:33
DX: F41.9 Anxiety disorder, unspecified (principal); R45.851 Suicidal ideations; F43.10 Post-traumatic stress disorder, unspecified; Z79.899 Other long term (current) drug therapy; Z20.828 Contact with and (suspected) exposure to other viral communicable diseases
CPT/HCPCS: 0241U; 36415; 80053; 80178; 80307; 81015; 84436; 84443; 85025; 93005; 99283; G0480

== ENCOUNTER 2024-01-01 14:34 | Emergency (ER) | payer MEDICARE, OTHER ==
[2024-01-01 15:01] VITALS: PULSE 87; RESP 17; TEMP 98; O2SAT 94
[2024-01-01 16:04] VITALS: BP 127/78
--- NOTE | 2024-01-01 16:14 | XRAY ---
Indication: Worsening chronic headache one year. Multiple contiguous axial images obtained through the head without contrast. Comparison: November 15, 2021 Normal appearing brain parenchyma, ventricles, and bony calvarium. Again incidental incompletely visualized small right maxillary sinus polyp/retention cyst at least 1.5 cm. Remaining visualized paranasal sinuses and mastoid air cells are clear. Impression: Continued normal CT head without contrast exam. Again incidental right maxillary sinus polyp/retention cyst.
--- NOTE | 2024-01-01 17:05 | ERPHSYRPT ---
- History of Present Illness Time Seen by Provider: 01/01/24 15:00 Source: patient Exam Limitations: no limitations Patient Subjective Stated Complaint: C/O intermittent headaches for almost 2 years. States most recent episode started yesterday. Describes pain as sharp and stabbing. [facility] to rule out Subarachnoid hemorrage. Triage Nursing Assessment: Patient ambulated back to ER without difficulties. He is alert and oriented. No current nausea but indicates he was nauseated yesterday. No vision changes. No SOB. He is flushed; denies sunburn. Physician History: 48-year-old male presents to the ED with concerns of headache which has been ongoing for the past 2 years but has been worse in the past 1 month. Patient reports that he is in the and he suffers chronic back and extremity pain. Worse on the left upper extremity. Patient states that he has had extensive workup for the headache without any etiology found. He was sent to the emergency department by his PCP to have a CT of the head due to concern for any acute intracranial abnormality. Headache is currently rated a 1 out of 10. Has taken nothing today for symptomatic relief. Patient denies any nausea, vomiting or blurry vision. He denies any other associated symptoms. Allergies/Adverse Reactions: hydrocodone Allergy (Verified 01/01/24 14:44) soft drinks Allergy (Uncoded 01/01/24 14:44) christiano coloring Home Medications: Metformin HCl 500 mg [Glucophage 500 MG] 500 mg PO BID 01/01/24 [History] Hx Tetanus, Diphtheria Vaccination/Date Given: Yes Hx Influenza Vaccination/Date Given: No Hx Pneumococcal Vaccination/Date Given: No Immunizations Up to Date: Yes Travel Risk - International Travel Have you traveled outside of the country in past 3 weeks: No - Emerging Infectious Disease Are you exhibiting symptoms associated with any current EIDs: Yes Symptoms: Headaches/Body Aches/ - Review of Systems Constitutional: No Symptoms, Other (Headache) Eyes: No Symptoms Ears, Nose, & Throat: No Symptoms Respiratory: No Symptoms Cardiac: No Symptoms Abdominal/Gastrointestinal: No Symptoms Genitourinary Symptoms: No Symptoms Musculoskeletal: Other (pain to left upper extremity) Neurological: Headache All Other Systems: Reviewed and Negative - Past Medical History Pertinent Past Medical History: Yes Cardiac History: High Cholesterol Endocrine Medical History: Diabetes Type II Other Medical History: chronic back pain with radiopathy, 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, ptsd - Past Surgical History Past Surgical History: Yes Other Surgical History: l5 s1 discectomy - Social History Smoking Status: Current every day smoker Exposure to second hand smoke: No Drug Use: none Patient Lives Alone: No - Social Determinants of Health Will the patient participate in the screening: Yes Do you worry about a steady place to live?: No Do you have any problems with any of the following?: No known problems In the past 12 months,have you had to go without utilities?: No Transportation Issues: No Has anyone in your support network made you feel unsafe?: No Have you or anyone in your house had to go without enough: No - Nursing Vital Signs Nursing Vital Signs: Initial Vital Signs Temperature 98 F 01/01/24 14:40 Pulse Rate 83 01/01/24 14:40 Respiratory Rate 13 01/01/24 14:40 Blood Pressure 134/83 01/01/24 14:40 O2 Sat by Pulse Oximetry 97 01/01/24 14:40 Pain Scale Pain Intensity 4 - Physical Exam General Appearance: no apparent distress Eye Exam: eyes nml inspection Ears, Nose, Throat Exam: normal ENT inspection, TMs normal Neck Exam: normal inspection, supple Respiratory Exam: normal breath sounds, lungs clear Cardiovascular Exam: regular rate/rhythm, normal heart sounds Gastrointestinal/Abdominal Exam: soft, normal bowel sounds, other (Non tender in all quadrants) Back Exam: normal inspection Extremity Exam: normal inspection, normal range of motion Mental Status Exam: alert, oriented x 3 director funeral Exam: normal hearing, normal speech Coordination/Gait Exam: normal finger to nose, normal gait Motor/Sensory Exam: no motor deficit, no sensory deficit DTR Exam: bicep (L): 2+, knee (R): 2+ Skin Exam: normal color SpO2: 94 O2 Delivery: Room Air - Course Nursing assessment & vital signs reviewed: Yes Ordered Tests: Active Orders 24 hr Category Date Time Status HEAD WITHOUT CONTRAST [CT] Stat Exams 01/01/24 15:39 Completed Medical Desision Making - Discussion of managment Reviewed:: Test results, Need for additional workup - Diagnostic Testing Radiological Interpretation: Interpreted by me, Teleradiologist Report - Risk of complications Minimal Risk: Minimal risk of morbidity - Departure Departure Disposition: Home Clinical Impression: Headache Condition: Stable Critical Care Time: No Referrals: DOCTOR,NO FAMILY [Primary Care Provider] - Follow up/PCP as directed Instructions: Headache, Adult (DC) Additional Instructions: Follow up with PCP within 1 week. May return to the ED if symptoms worsen. May use OTC Tylenol or ibuprofen for pain.
== END 2024-01-01 17:25 | disposition home or self-care (01) ==
LOC: ED 14:34
DX: R51.9 Headache, unspecified (principal); E78.5 Hyperlipidemia, unspecified; E11.9 Type 2 diabetes mellitus without complications; Z79.84 Long term (current) use of oral hypoglycemic drugs; Z72.0 Tobacco use
CPT/HCPCS: 70450; 99283

== ENCOUNTER 2024-02-16 14:34 | Observation (INO) | payer OTHER ==
--- NOTE | 2024-02-16 14:57 | ERPHSYRPT ---
- History of Present Illness Time Seen by Provider: 02/16/24 14:55 Source: patient Exam Limitations: no limitations Patient Subjective Stated Complaint: left back pain from his chest, and thinks his face is drooping Triage Nursing Assessment: Pt brought self to the ER due [facility] and drooping face, vitals wnl, rates pain as 6/10, no drooping noted, no difficulty breathing, pt states that he has been to the hiropractor twice and afterwards he "feels his face drawing in", doesn't appear to be in any distress Physician History: 48-year-old male presents to our ED as a referral from the [facility] for evaluation of chest pain and "facial droop. Patient states he has been experiencing facial twisting intermittently for the past 2 years. Patient also reports chest pain into his left back area. No associated nausea vomiting or diaphoresis. Patient reports a left-sided headache going into his left arm that has been ongoing for 2 years. Patient states his [place] physician retired and he has not been assigned a new doctor. Patient currently does not have a primary care doctor to follow-up with. Patient symptoms are mild to moderate in intensity. Patient is currently asymptomatic. No active chest pain. No facial droop observed. No trauma. No fever no nausea no vomiting no diaphoresis. Patient voices no other complaints or concerns at this time. Portions of this note were created with voice recognition technology. There may be grammatical, spelling, punctuation or sound alike errors Timing/Duration: today Severity: moderate Modifying Factors: Improves With: nothing Associated Symptoms: denies symptoms Allergies/Adverse Reactions: hydrocodone Allergy (Verified 02/16/24 14:51) soft drinks Allergy (Uncoded 02/16/24 14:51) christiano coloring Home Medications: Propranolol HCl [Propranolol HCl ER] 60 mg PO BID 02/16/24 [History] gemfibroziL [Gemfibrozil] 600 mg PO DAILY 02/16/24 [History] Hx Tetanus, Diphtheria Vaccination/Date Given: Yes Hx Influenza Vaccination/Date Given: No Hx Pneumococcal Vaccination/Date Given: No Travel Risk - International Travel Have you traveled outside of the country in past 3 weeks: No - Emerging Infectious Disease Are you exhibiting symptoms associated with any current EIDs: No Symptoms: Headaches/Body Aches/ - Review of Systems Constitutional: No Symptoms, No Fever, No Chills Eyes: No Symptoms Ears, Nose, & Throat: No Symptoms Respiratory: No Symptoms, No Cough, No Dyspnea Cardiac: No Symptoms, No Chest Pain, No Edema, No Syncope Abdominal/Gastrointestinal: No Symptoms, No Abdominal Pain, No Nausea, No Vomiting, No Diarrhea Genitourinary Symptoms: No Symptoms, No Dysuria Musculoskeletal: No Symptoms, No Back Pain, No Neck Pain Skin: No Symptoms, No Rash Neurological: No Symptoms, No Dizziness, No Focal Weakness, No Sensory Changes Psychological: No Symptoms Endocrine: No Symptoms Hematologic/Lymphatic: No Symptoms Immunological/Allergic: No Symptoms All Other Systems: Reviewed and Negative - Past Medical History Pertinent Past Medical History: Yes Cardiac History: High Cholesterol Endocrine Medical History: Diabetes Type II Other Medical History: chronic back pain with radiopathy, 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, ptsd - Past Surgical History Past Surgical History: Yes Other Surgical History: l5 s1 discectomy - Social History Smoking Status: Current every day smoker Exposure to second hand smoke: Yes Drug Use: none Patient Lives Alone: No - Social Determinants of Health Will the patient participate in the screening: Yes Do you worry about a steady place to live?: No Do you have any problems with any of the following?: No known problems In the past 12 months,have you had to go without utilities?: No Transportation Issues: No Has anyone in your support network made you feel unsafe?: No Have you or anyone in your house had to go without enough: No - Nursing Vital Signs Nursing Vital Signs: Initial Vital Signs Blood Pressure 132/84 02/16/24 14:35 Pain Scale Pain Intensity 6 - Physical Exam General Appearance: no apparent distress, alert Eye Exam: PERRL/EOMI, eyes nml inspection Ears, Nose, Throat Exam: normal ENT inspection, TMs normal, pharynx normal, angela st mucous membranes Neck Exam: normal inspection, non-tender, supple, full range of motion Respiratory Exam: normal breath sounds, lungs clear, No respiratory distress Cardiovascular Exam: regular rate/rhythm, normal heart sounds, normal peripheral pulses Gastrointestinal/Abdomen Exam: soft, normal bowel sounds, No tenderness, No mass Back Exam: normal inspection, normal range of motion, No CVA tenderness, No vertebral tenderness Extremity Exam: normal inspection, normal range of motion, pelvis stable Neurologic Exam: alert, oriented x 3, cooperative, normal mood/affect, nml cerebellar function, nml station & gait, sensation nml, other (No focal or lateralizing symptoms), No motor deficits Skin Exam: normal color, warm, dry, No rash Lymphatic Exam: No adenopathy SpO2 Interpretation: normal SpO2: 98 O2 Delivery: Room Air - Course Nursing assessment & vital signs reviewed: Yes EKG Interpreted by Me: RATE (73), Sinus Rhythm, NORMAL AXIS, NORMAL INTERVALS, NORMAL QRS - Radiology Exams Chest X-ray Interpretation: Teleradiologist Report (Chest x-ray negative) - CT Exams Head CT Interpretation: Tele-radiologist Report (CT head with and without contrast negative) Soft Tissue Neck CT Interpretation: Tele-radiologist Report (CTA neck negative) Ordered Tests: Active Orders 24 hr Category Date Time Status Welcome Center Agent STAT Care 02/16/24 14:52 Active EKG-ER Only STAT Care 02/16/24 14:51 Active IV Insertion STAT Care 02/16/24 14:51 Active Pulse Oximetry (ED) STAT Care 02/16/24 14:51 Active CHEST 1 VIEW (PORTABLE) Stat Exams 02/16/24 14:[address] ANGIOGRAPHY NECK [CT] Stat Exams 02/16/24 16:56 Taken CTA HEAD W AND/OR WO CONTRAST [CT] Stat Exams 02/16/24 14:52 Taken HEAD WITHOUT CONTRAST [CT] Stat Exams 02/16/24 16:13 Taken CBC W DIFF Stat Lab 02/16/24 15:00 Completed CMP Stat Lab 02/16/24 15:05 Completed TROPONIN Q4H Lab 02/16/24 15:05 Completed TROPONIN Q4H Lab 02/16/24 19:30 Received TROPONIN Q4H Lab 02/16/24 23:00 Ordered Transfer Order Routine Transfer 02/16/24 Ordered Medication Summary Generic Name Dose Route Start Last Admin Trade Name Freq PRN Reason Stop Dose Admin Sodium Chloride 1,000 mls @ 75 mls/hr 02/16/24 19:45 02/16/24 19:42 Sodium Chloride 0.9% 1000 Ml IV 03/17/24 19:44 75 mls/hr .[id number] KRISTEN Administration Discontinued Medications Generic Name Dose Route Start Last Admin Trade Name Freq PRN Reason Stop Dose Admin Aspirin 324 mg 02/16/24 19:30 02/16/24 19:42 Aspirin 81 Mg Tab.Chew PO 02/16/24 19:31 324 mg STAT ONE Administration Aspirin Confirm 02/16/24 19:40 Aspirin 81 Mg Tab.Chew Administered 02/16/24 19:41 Dose 324 mg .ROUTE .STK-MED ONE Lab/Rad Data: Laboratory Result Diagrams 02/16/24 15:00 02/16/24 15:05 Laboratory Results 02/16/24 02/16/24 02/16/24 Range/Units 15:05 15:05 15:00 WBC 9.6 H (4.23-9.07) x10^3/uL RBC 5.33 (4.63-6.08) x10^6/uL Hgb 16.2 (13.7-17.5) g/dL Hct 48.0 (40.1-51.0) % MCV 90.1 (79.0-92.2) fL MCH 30.4 (25.7-32.2) pg MCHC 33.8 (32.3-36.5) g/dL RDW 13.4 (11.6-14.4) % Plt Count 308 (163-337) x10^3/uL MPV 9.6 (9.4-12.4) fL Gran % 53.2 (34.0-67.9) % Immature Gran % (Auto) 0.4 (0.001-0.429) % Nucleat RBC Rel Count 0.0 (0.00-0.2) % Eos # (Auto) 0.38 (0.04-0.54) x10^3/uL Immature Gran # (Auto) 0.04 H (0.001-0.031) x10^3u/L Absolute Lymphs (auto) 3.15 (1.32-3.57) x10^3/uL Absolute Monos (auto) 0.83 H (0.30-0.82) x10^3/uL Absolute Nucleated RBC 0.00 (0.00-0.012) x10^3u/L Lymphocytes % 32.8 (21.8-53.1) % Monocytes % 8.6 (5.3-12.2) % Eosinophils % 4.0 (0.8-7.0) % Basophils % 1.0 (0.2-1.2) % Absolute Granulocytes 5.10 (1.78-5.38) x10^3/uL Basophils # 0.10 H (0.01-0.08) x10^3/uL Sodium 143 (135-145) mmol/L Potassium 4.6 (3.5-5.1) mmol/L Chloride 107 (98-107) mmol/L Carbon Dioxide 24 (22-30) mmol/L Anion Gap 16.7 H (5-15) MEQ/L BUN 19 (9-20) mg/dL Creatinine 1.32 H (0.66-1.25) mg/dL Estimated GFR 67.0 ML/MIN Glucose 129 H (74-106) mg/dL Calcium 9.9 (8.4-10.2) mg/dL Total Bilirubin 0.50 (0.2-1.3) mg/dL AST 33 (17-59) U/L ALT 41 (0-50) U/L Alkaline Phosphatase 61 (38-126) U/L Troponin I < 0.012 (0.000-0.033) ng/mL Serum Total Protein 7.7 (6.3-8.2) g/dL Albumin 4.6 (3.5-5.0) g/dL - Progress Progress: improved Progress Note: 02/16/24 19:50 Case discussed with neurologist who advises admission for MRI of brain with and without contrast and MRI of cervical spine without contrast. He also request aspirin. Aspirin administered. IV fluids infusing. Plan of care discussed with patient. He agrees to admission at [facility] for further evaluation and treatment. Portions of this note were created with voice recognition technology. There may be grammatical, spelling, punctuation or sound alike errors Case discussed with hospitalist accepts admission at 7:50 PM. Patient is a 48-year-old male presents to our ED for evaluation of a ongoing headache pain in his left arm. Patient also reports having a right-sided facial droop. Physical exam/neuroexam was unremarkable. Laboratory workup shows a slightly elevated serum creatinine otherwise negative laboratory workup. CTA head neck negative for acute acute pathology/LVO. Teleneurologist requesting admission for MRI MRA brain/further workup. Patient is agreeable to admission. Patient reports she has history of bad sleep apnea. He is requesting a CPAP for his stay in our hospital. This information was conveyed to RN. We will notify respiratory. Complexity of problem addressed is moderate acute complicated. No critical care time. Complexity of data reviewed and analyzed is extensive. Test ordered test reviewed results analyzed and correlated clinically with history and physical exam. Risk of complication and or risk of morbidity/mortality of patient management is high. Patient requires hospitalization for further evaluation and treatment. Vital stable. Time spent admit patient approximately 20 minutes. Plan of care established for shared decision making. No social determinants of health present to impede follow-up. Portions of this note were created with voice recognition technology. There may be grammatical, spelling, punctuation or sound alike errors 02/16/24 19:56 Counseled pt/family regarding: lab results, diagnosis, rad results - Departure Departure Disposition: Home Clinical Impression: Chronic pain, Elevated serum creatinine, TIA (transient ischemic attack) Condition: Stable Critical Care Time: No Referrals: MIRA PETERSEN MD [ACTIVE STAFF] - Follow up/PCP as directed Additional Instructions: Discharge/Care Plan WENDI MATHEWS was seen on 02/16/24 in the Emergency Room. The patient was counseled regarding Diagnosis,Lab results, Imaging studies, need for follow up and when to return to the Emergency Room. Prescriptions given: Discharge Note I have spoken with the patient and/or caregivers. I have explained the patient's condition, diagnosis and treatment plan based on the information available to me at this time. I have answered the patient's and/or caregiver's questions and addressed any concerns. The patient and/or caregivers have as good understanding of the patient's diagnosis, condition and treatment plan as can be expected at this point. The vital signs have been stable. The patient's condition is stable and appropriate for discharge from the emergency department. The patient will pursue further outpatient evaluation with the primary care physician or other designated or consulting physician as outlined in the discharge instructions. The patient and/or caregivers are agreeable to this plan of care and follow-up instructions have been explained in detail. The patient and/or caregivers have received these instruction. The patient/and or caregivers are aware that any significant change in condition or worsening of symptoms should prompt an immediate return to this or the closest emergency department or call 911.
[2024-02-16 15:11] LABS: Eosinophil (Absolute #) 0.38 x10^3/uL (0.04-0.54); Hemoglobin 16.2 g/dL (13.7-17.5); IMMATURE GRAN # 0.04 x10^3u/L (0.001-0.031); IMMATURE GRAN % 0.4 % (0.001-0.429); Lymphocyte (Absolute #) 3.15 x10^3/uL (1.32-3.57); Lymphocytes % 32.8 % (21.8-53.1); Mean Cell Volume 90.1 fL (79.0-92.2); Mean Corpuscular Hemoglobin 30.4 pg (25.7-32.2); Mean Corpuscular Hgb Concent. 33.8 g/dL (32.3-36.5); Mean Platelet Volume 9.6 fL (9.4-12.4); Monocyte (Absolute #) 0.83 x10^3/uL (0.30-0.82); Monocytes % 8.6 % (5.3-12.2); Neutrophil % 53.2 % (34.0-67.9); Platelet Count 308 x10^3/uL (163-337); Red Blood Count 5.33 x10^6/uL (4.63-6.08); Red Cell Distribution Width 13.4 % (11.6-14.4); White Blood Count 9.6 x10^3/uL (4.23-9.07)
--- NOTE | 2024-02-16 15:11 | XRAY ---
Indication: Pain. Comparison: None Portable chest demonstrates normal heart and lungs. Bony thorax intact with minimal degenerative changes.
[2024-02-16 15:45] LABS: ALBUMIN 4.6 g/dL (3.5-5.0); ANION GAP 16.7 MEQ/L (5-15); BILIRUBIN,TOTAL 0.5 mg/dL (0.2-1.3); Calcium 9.9 mg/dL (8.4-10.2); Creatinine 1 1.32 mg/dL (0.66-1.25); Potassium 4.6 mmol/L (3.5-5.1); Total Protein 7.7 g/dL (6.3-8.2)
--- NOTE | 2024-02-16 19:11 | PCM.CONS ---
History of Present Illness - Neuro Consultation Date of Consultation Date: 02/16/24 ED Arrival Date & Time: 02/16/24 14:34 Providers: Attending Provider: ED Provider: ELISABETH JO Consulting Provider: PARKER PRATT MD Reason for Consult: acute stroke cc:: The requesting physician will be sent a copy of the consult. Teleneurology Attestation & Consent: As the provider for this telehealth consult requested by the patients primary attending physician, I attest that I introduced myself to the patient, provided my credentials, disclosed my location, and determined that, based on a review of the patients chart and discussion with the patients primary team, telemedicine via a real-time, two- way, interactive audio and video platform is an appropriate and effective means of providing this service. The patient and I mutually agree that this visit is appropriate for telemedicine. The patient has consented to this telemedicine visit. Last known normal: 1 week ago Time of stroke alert: 5:54h RUG SHAMPOOER 02/16/24 Time stroke alert page returned: 5:57h RUG SHAMPOOER 02/16/24 Was the patient seen on camera?: yes - Chief Complaint Patient Subjective Stated Complaint: I have had better days. rigth face burning pain - History of Present Illness HPI: The patient is a 48M with h/o HTN presents with headache, right face twitching and burning sensation. He reports that he has had headache for years that radiates to his neck , shoulders and waterfall sensation to his LUE and chest. Headache is 95% in the left side, described as ranging from sharp to dull or throbbing pain , severity 1-2/10 currently but earlier today was intense. headache is associated with nausea, vomiting and says he is always unbalances. That his apple watch tells him that he is dizzy. Over the pst 1 week his right face twitching and burning and occurs with and without headache. 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 c/o persistent LUE weakness associated with numbness since 12/2021. He states he thinks he has a pinched nerve at C1-C2. He says his heart rate goes crazy of a sudden. He smokes. Denies h/o stroke. He reports taking [id number] daily because of leg cramps from taking proranolol. Nurse at bedside Review of Systems - Review of Systems Review of Systems (Narrative): Pertinent positive and negative findings as per HPI. All other systems negative. Constitutional: Denies fevers, chills, weight loss ENT: c/o horrible tinnitus in rigth ear when his BP gets really high Ophthalmology: Denies diplopia, blurred vision, vision loss Respiratory: Denies SOB, cough Cardiovascular: Denies chest pains, palpitations GI: Denies nausea, vomiting : Denies hematuria Hematology: Denies excessive bleeding Musculoskeletal: Denies back pain,joint pain Neurology: Denies altered mentation Mental Health: Denies anxiety Dermatology: Denies rash - Past Medical History Past Medical History: Yes Cardiac History: High Cholesterol Endocrine Medical History: Diabetes Type II Comment: chronic back pain with radiopathy, 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, ptsd - Past Surgical History Past Surgical History: Yes Other Surgical History: l5 s1 discectomy - Social History Smoking Status: Current every day smoker Exposure to second hand smoke: Yes Alcohol: None Drug Use: none - Social Determinants of Health Will the patient participate in the screening: Yes Do you worry about a steady place to live?: No Do you have any problems with any of the following?: No known problems In the past 12 months,have you had to go without utilities?: No Have you or anyone in your house had to go without enough: No Transportation Issues: No Has anyone in your support network made you feel unsafe?: No Physical Exam - Vital Signs Vital Signs: Vital Signs - 24 hr 02/16/24 02/16/24 02/16/24 14:35 14:36 15:01 Temperature 98.2 F Pulse Rate 75 Respiratory 22 Rate Blood Pressure 132/84 Blood Pressure 132/84 [Right Arm] O2 Sat by Pulse 98 95 Oximetry 02/16/24 02/16/24 02/16/24 15:03 15:10 15:20 Temperature Pulse Rate 79 78 Respiratory 25 H 18 Rate Blood Pressure Blood Pressure [Right Arm] O2 Sat by Pulse 95 94 L 95 Oximetry 02/16/24 02/16/24 02/16/24 15:29 15:30 16:00 Temperature Pulse Rate 74 73 69 Respiratory 18 21 19 Rate Blood Pressure 124/68 125/71 Blood Pressure [Right Arm] O2 Sat by Pulse 94 L 94 L 96 Oximetry 02/16/24 02/16/24 02/16/24 16:30 17:16 17:20 Temperature Pulse Rate 66 Respiratory 24 Rate Blood Pressure 124/75 Blood Pressure [Right Arm] O2 Sat by Pulse 97 97 Oximetry 02/16/24 02/16/24 02/16/24 17:30 18:00 18:44 Temperature Pulse Rate 65 64 Respiratory 20 19 Rate Blood Pressure 110/70 125/74 Blood Pressure [Right Arm] O2 Sat by Pulse 96 94 L 98 Oximetry - Physical Exam Tele-Neuro Physical Exam (Narrative): Gen: Well developed, well nourished. No acute distress. MS: Awake and oriented. Alert. Fund of knowledge, memory, and language at baseline. CV: Regular rate. No edema. tetryl screen operator: [place], EOMI. +blink. Unable to visualize fundi. Sensation intact. Face is symmetric. Hearing intact. Trapezii strong. Tongue midline. Motor: Antigravity in all 4 extremities. Normal tone and bulk. Sens: Intact to light touch in all 4 extremities. MSR: Unable to assess through telemedicine, no clonus noted. Mvmt: No tremors noted. ANGELITA/FTN intact. Gait: Deferred. NIHSS Mental status (0-3): 0 Month/age (0-2): 0 Commands (0-2): 0 Best Gaze (0-2): 0 Visual Juarez (0-3):0 Facial weakness (0-3): 0 LUE (0-4): 0 RUE (0-4): 0 LLE (0-4): 0 RLE (0-4): 0 Ataxia (0-2): 0 Sensation (0-2): 0 Aphasia (0-3): 0 Dysarthria (0-2): 0 Extinction (0-2): 0 NIHSS Total: 0 Results - Labs Lab/Micro Results: Lab Results-Last 24 Hours 02/16/24 02/16/24 02/16/24 Range/Units 15:00 15:05 15:05 WBC 9.6 H (4.23-9.07) x10^3/uL RBC 5.33 (4.63-6.08) x10^6/uL Hgb 16.2 (13.7-17.5) g/dL Hct 48.0 (40.1-51.0) % MCV 90.1 (79.0-92.2) fL MCH 30.4 (25.7-32.2) pg MCHC 33.8 (32.3-36.5) g/dL RDW 13.4 (11.6-14.4) % Plt Count 308 (163-337) x10^3/uL MPV 9.6 (9.4-12.4) fL Gran % 53.2 (34.0-67.9) % Immature Gran % (Auto) 0.4 (0.001-0.429) % Nucleat RBC Rel Count 0.0 (0.00-0.2) % Eos # (Auto) 0.38 (0.04-0.54) x10^3/uL Immature Gran # (Auto) 0.04 H (0.001-0.031) x10^3u/L Absolute Lymphs (auto) 3.15 (1.32-3.57) x10^3/uL Absolute Monos (auto) 0.83 H (0.30-0.82) x10^3/uL Absolute Nucleated RBC 0.00 (0.00-0.012) x10^3u/L Lymphocytes % 32.8 (21.8-53.1) % Monocytes % 8.6 (5.3-12.2) % Eosinophils % 4.0 (0.8-7.0) % Basophils % 1.0 (0.2-1.2) % Absolute Granulocytes 5.10 (1.78-5.38) x10^3/uL Basophils # 0.10 H (0.01-0.08) x10^3/uL Sodium 143 (135-145) mmol/L Potassium 4.6 (3.5-5.1) mmol/L Chloride 107 (98-107) mmol/L Carbon Dioxide 24 (22-30) mmol/L Anion Gap 16.7 H (5-15) MEQ/L BUN 19 (9-20) mg/dL Creatinine 1.32 H (0.66-1.25) mg/dL Estimated GFR 67.0 ML/MIN Glucose 129 H (74-106) mg/dL Calcium 9.9 (8.4-10.2) mg/dL Total Bilirubin 0.50 (0.2-1.3) mg/dL AST 33 (17-59) U/L ALT 41 (0-50) U/L Alkaline Phosphatase 61 (38-126) U/L Troponin I < 0.012 (0.000-0.033) ng/mL Serum Total Protein 7.7 (6.3-8.2) g/dL Albumin 4.6 (3.5-5.0) g/dL - Radiology Orders Radiology Orders: Radiology Procedures Category Date Time Status CHEST 1 VIEW (PORTABLE) Stat Exams 02/16/24 14:[address] ANGIOGRAPHY NECK [CT] Stat Exams 02/16/24 16:56 Taken CTA HEAD W AND/OR WO CONTRAST [CT] Stat Exams 02/16/24 14:52 Taken HEAD WITHOUT CONTRAST [CT] Stat Exams 02/16/24 16:13 Taken Impressions & Recommendations - ED Arrival Time ED Arrival Date & Time: ED Arrival Date and Time 02/16/24 14:34 Last known well time: - NIHSS NIHSS: NIHSS=0 Is patient an IV TPA candidate (if no specify reason): No Is patient a thrombectomy candidate:: No Candidate (No): Reason: Patient is not a candidat - Recommendations Recommendations: Acute stroke vs cervical radiculopathy. If MRI brain shows acute stroke, please follow the secondary stroke prevention below.out of window for iv thrombolysis and EVT - Frequent neuro-checks (q4h) - BP goal <130/80 - Baseline EKG and CXR - Basic labs: CBC, CMP, coagulation panel and troponin - Intravenous hydration with normal saline at 75cc per hour - NPO until after NEEDLE [employer]ESS [employer] SUPERVISOR eval -Replace electrolytes prn-Keep K >4.0, Mg > 2.0. - Head of bed > 30 degrees for aspiration prevention and aspiration precautions -tyleonol 650mg q6h prn for headache Stroke workup: -CTH:no acute intracranial process -CTA head and neck:No LVO -MRI brain w/wo con: -MRI C spine w/o con: -Trans-thoracic echocardiogram with bubble study -Continuous cardiac telemetry to monitor for arrhythmia -Stroke labwork: HgbA1C, lipid panel, urine drug screen -NCS/EMG of BUE in the outpatient Secondary prevention of stroke: -Aspirin 81mg daily and aspirin 81mg daily for 3 weeks then aspirin 81mg daily -Atorvastatin 80 mg daily (long-term goal LDL < 70) -Tight glucose control (long-term goal HgbA1c < 7%) -Stroke education and counseling -If smoker, smoking counseling and offer assistance with smoking cessation (possible nicotine patch) Stroke Rehabilitation: -Physical therapy, occupational therapy, speech therapy consults -Social work and case management consults for help with discharge needs. Neurology follow up in 2 weeks Independently interpreted labs and radiology. Impression and recommendation were discussed with Dr. ELISABETH JO Thank you for allowing us to participate in this patient's care. Please call [facility] with questions, concerns, or change in patient's neurological status. This consult was performed via secure telemedicine audio/visual platform with [ ] RN assisting at bedside. Patient identity verified and consent obtained. TIQ recieved at [ ] Neuro Cart Time: Delays in Patient Encounter: Assessment & Plan - Encounter Encounter: "The entirety of this encounter was performed via Telemedicine using audio and visual "
[2024-02-16] MEDS ORDERED: BABY ASPIRIN 81 MG CHEW ONE (19:40)
[2024-02-16] MEDS: Sodium Chloride 0.9% 1000 ML 1,000 ML IV SCH (19:42)
[2024-02-16] MEDS: BABY ASPIRIN 81 MG CHEW PO ONE (19:42)
[2024-02-16] MEDS ORDERED: TYLENOL 325 MG PO PRN (20:47)
--- NOTE | 2024-02-16 21:23 | PCM.HP ---
History of Present Illness - Chief Complaint Chief Complaint: Facial twitching and droop Date: 02/16/24 History of Present Illness: is a 48 year old male with history of chronic headache and anxiety, here with new right facial twitching and droop. Patient notes that he has had a history for the last 2 years of left-sided headache, with burning pain radiating down his shoulder to the left arm. He notes that it is worse when he smokes, although is often present even when he quit smoking. Often it is associated with anxiety, with increased heart rate and blood pressure at that time. On one occasion, she noted a little bit of presyncope/gait instability, and his Apple Watch alerted him to a heart rhythm abnormality. He was started on propranolol 1 month ago, with a decrease in the anxiety and decreased intensity of his headaches. However, for the last 3 days, he has had new right sided facial burning sensation, as well as the impression that it was twitching or twisting, with a more "relaxed" appearance to his muscles. [facility], and they told him to come to the ER for evaluation. He denies any other motor symptoms, and no other numbness or paresthesias. He smokes less than a pack a day, and declined nicotine patch. He has no history of neurologic disease. - Review of Systems All Other Systems: Reviewed and Negative (Except as per HPI) Medications & Allergies Home Medications: Home Medication List Aspirin EC 81 mg [Ecotrin 81 mg] 81 mg PO DAILY 02/16/24 [History Confirmed 02/16/24] Propranolol HCl [Propranolol HCl ER] 60 mg PO BID 02/16/24 [History Confirmed 02/16/24] gemfibroziL [Gemfibrozil] 600 mg PO DAILY 02/16/24 [History Confirmed 02/16/24] Allergies/Adverse Reactions: Allergies Allergy/AdvReac Type Severity Reaction Status Date / Time hydrocodone Allergy Verified 02/16/24 14:51 soft drinks Allergy Uncoded 02/16/24 14:51 - Past Medical History Past Medical History: Yes Neurological History: No Pertinent History ENT History: No Pertinent History Cardiac History: No Pertinent History Respiratory History: Sleep Apnea Endocrine Medical History: No Pertinent History Musculoskelatal History: No Pertinent History GI Medical History: No Pertinent History History: No Pertinent History Pyscho-Social History: Anxiety, Other Male Reproductive Disorders: No Pertinent History Comment: PTSD - Past Surgical History Past Surgical History: Yes Neuro Surgical History: Other Cardiac History: No Pertinent History Respiratory Surgery: No Pertinent History GI Surgical History: No Pertinent History Genitourinary Surgical Hx: No Pertinent History Musculskeletal Surgical Hx: No Pertinent History Male Surgical History: No Pertinent History Other Surgical History: two prior back surgeries August 2000, April 2010 Significant Family History: no pertinent family hx - Social History Smoking Status: Current every day smoker How long have you smoked: 33yeas Exposure to second hand smoke: Yes Alcohol: None Drug Use: none - Social Determinants of Health Will the patient participate in the screening: Yes Do you worry about a steady place to live?: No Do you have any problems with any of the following?: No known problems In the past 12 months,have you had to go without utilities?: No Have you or anyone in your house had to go without enough: No Transportation Issues: No Has anyone in your support network made you feel unsafe?: No Does the patient want assistance with any of the above?: No - Physical Exam Vital Signs: Vital Signs - 24 hr Temp Pulse Resp BP BP Pulse Ox 02/16/24 20:17 97.8 F 63 18 124/94 96 02/16/24 19:59 98 02/16/24 19:01 132/81 02/16/24 18:30 106/67 02/16/24 18:00 64 19 125/74 94 L 02/16/24 17:30 65 20 110/70 96 02/16/24 17:20 66 24 97 02/16/24 17:16 97 02/16/24 16:30 124/75 02/16/24 16:00 69 19 125/71 96 02/16/24 15:30 73 21 124/68 94 L 02/16/24 15:29 74 18 94 L 02/16/24 15:20 78 18 95 02/16/24 15:10 79 25 H 94 L 02/16/24 15:03 95 02/16/24 15:01 95 02/16/24 14:36 98.2 F 75 22 132/84 98 02/16/24 14:35 132/84 General Appearance: no apparent distress Neurologic Exam: alert, oriented x 3, cooperative, normal mood/affect, sensation nml, motor deficits, No motor weakness, No facial droop, No slurred speech, No aphasia, No dysarthria, 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 Eye Exam: PERRL/EOMI, eyes nml inspection, No scleral icterus, No pale conju nctivae Ears, Nose, Throat Exam: moist mucous membranes Neck Exam: supple, full range of motion Respiratory Exam: normal breath sounds, lungs clear, No respiratory distress Cardiovascular Exam: regular rate/rhythm, normal heart sounds, No murmur, No edema Gastrointestinal/Abdomen Exam: No tenderness, No distention Extremity Exam: normal inspection, normal range of motion, No deformities, No joint swelling Skin Exam: normal color, No rash Results - Labs Lab/Micro Results: Lab Results-Last 24 Hours 02/16/24 02/16/24 02/16/24 Range/Units 15:00 15:05 15:05 WBC 9.6 H (4.23-9.07) x10^3/uL RBC 5.33 (4.63-6.08) x10^6/uL Hgb 16.2 (13.7-17.5) g/dL Hct 48.0 (40.1-51.0) % MCV 90.1 (79.0-92.2) fL MCH 30.4 (25.7-32.2) pg MCHC 33.8 (32.3-36.5) g/dL RDW 13.4 (11.6-14.4) % Plt Count 308 (163-337) x10^3/uL MPV 9.6 (9.4-12.4) fL Gran % 53.2 (34.0-67.9) % Immature Gran % (Auto) 0.4 (0.001-0.429) % Nucleat RBC Rel Count 0.0 (0.00-0.2) % Eos # (Auto) 0.38 (0.04-0.54) x10^3/uL Immature Gran # (Auto) 0.04 H (0.001-0.031) x10^3u/L Absolute Lymphs (auto) 3.15 (1.32-3.57) x10^3/uL Absolute Monos (auto) 0.83 H (0.30-0.82) x10^3/uL Absolute Nucleated RBC 0.00 (0.00-0.012) x10^3u/L Lymphocytes % 32.8 (21.8-53.1) % Monocytes % 8.6 (5.3-12.2) % Eosinophils % 4.0 (0.8-7.0) % Basophils % 1.0 (0.2-1.2) % Absolute Granulocytes 5.10 (1.78-5.38) x10^3/uL Basophils # 0.10 H (0.01-0.08) x10^3/uL Sodium 143 (135-145) mmol/L Potassium 4.6 (3.5-5.1) mmol/L Chloride 107 (98-107) mmol/L Carbon Dioxide 24 (22-30) mmol/L Anion Gap 16.7 H (5-15) MEQ/L BUN 19 (9-20) mg/dL Creatinine 1.32 H (0.66-1.25) mg/dL Estimated GFR 67.0 ML/MIN Glucose 129 H (74-106) mg/dL Calcium 9.9 (8.4-10.2) mg/dL Total Bilirubin 0.50 (0.2-1.3) mg/dL AST 33 (17-59) U/L ALT 41 (0-50) U/L Alkaline Phosphatase 61 (38-126) U/L Troponin I < 0.012 (0.000-0.033) ng/mL Serum Total Protein 7.7 (6.3-8.2) g/dL Albumin 4.6 (3.5-5.0) g/dL 02/16/24 Range/Units 19:30 WBC (4.23-9.07) x10^3/uL RBC (4.63-6.08) x10^6/uL Hgb (13.7-17.5) g/dL Hct (40.1-51.0) % MCV (79.0-92.2) fL MCH (25.7-32.2) pg MCHC (32.3-36.5) g/dL RDW (11.6-14.4) % Plt Count (163-337) x10^3/uL MPV (9.4-12.4) fL Gran % (34.0-67.9) % Immature Gran % (Auto) (0.001-0.429) % Nucleat RBC Rel Count (0.00-0.2) % Eos # (Auto) (0.04-0.54) x10^3/uL Immature Gran # (Auto) (0.001-0.031) x10^3u/L Absolute Lymphs (auto) (1.32-3.57) x10^3/uL Absolute Monos (auto) (0.30-0.82) x10^3/uL Absolute Nucleated RBC (0.00-0.012) x10^3u/L Lymphocytes % (21.8-53.1) % Monocytes % (5.3-12.2) % Eosinophils % (0.8-7.0) % Basophils % (0.2-1.2) % Absolute Granulocytes (1.78-5.38) x10^3/uL Basophils # (0.01-0.08) x10^3/uL Sodium (135-145) mmol/L Potassium (3.5-5.1) mmol/L Chloride (98-107) mmol/L Carbon Dioxide (22-30) mmol/L Anion Gap (5-15) MEQ/L BUN (9-20) mg/dL Creatinine (0.66-1.25) mg/dL Estimated GFR ML/MIN Glucose (74-106) mg/dL Calcium (8.4-10.2) mg/dL Total Bilirubin (0.2-1.3) mg/dL AST (17-59) U/L ALT (0-50) U/L Alkaline Phosphatase (38-126) U/L Troponin I < 0.012 (0.000-0.033) ng/mL Serum Total Protein (6.3-8.2) g/dL Albumin (3.5-5.0) g/dL - Radiology Impressions Radiology Exams & Impressions: Radiology Procedures Category Date Time Status CHEST 1 VIEW (PORTABLE) Stat Exams 02/16/24 14:[address] ANGIOGRAPHY NECK [CT] Stat Exams 02/16/24 16:56 Taken CTA HEAD W AND/OR WO CONTRAST [CT] Stat Exams 02/16/24 14:52 Taken HEAD WITHOUT CONTRAST [CT] Stat Exams 02/16/24 16:13 Taken MRI BRAIN W/O CONTRAST [MRI] Routine Exams 02/16/24 20:48 Ordered Chest x-ray no infiltrate, effusion, or edema (images personally reviewed) CTA head and neck performed, but radiology reports are not yet available in EMR. Per discussion with ED provider, there were no acute findings noted. Assessment/Plan (1) Right facial pain Current Visit: Yes Status: Acute Assessment & Plan: 48-year-old man with history of anxiety and chronic headache, here with new right facial pain and weakness. ## Right facial pain/weakness patient has chronic left-sided headache with radicular distribution of pain, but now presenting with new onset of right facial pain and possible weakness. Upon arrival to the ED, he has no further symptoms on exam. Concern for possible CVA, with main risk factor being his continued smoking and intermittent hypertension. (Although he appears to be normotensive at this time.) differential also includes C-spine disease with concern for radiculopathy on the left side already. Less likely inflammatory nerve disease or MS. Neurology consulted, no need for acute intervention. Place patient in observation Place patient on telemetry No arrhythmia noted during his stay, patient will need to follow-up with his [facility] provider for consideration of center or implantable loop recorder for evaluation of his possible arrhythmia/presyncope MRI brain and C-spine, to evaluate for stroke and radiculopathies Check fasting lipid panel If stroke found, we will do further stroke workup including echocardiogram ## Elevated creatinine patient's creatinine is mildly elevated, but is essentially at his prior baseline from 2021. Given his age and size, his estimated GFR is still above 60. I suspect this is baseline, and essentially normal. Repeat BMP in the morning ## Elevated blood pressure reported per patient, although all of his measu rements here have been normal. He notes that this tends to occur during episodes of anxiety, which is probably the real underlying cause. Monitor blood pressure ## Chronic anxiety following with [facility] provider, and recently started on propranolol. Of note, this tends to mask the symptoms of anxiety without necessarily treating the underlying cause. However, patient notes improvement in quality of life while on this. Continue propranolol CODE STATUS: Full code Prophylaxis: None, encourage ambulation (low risk, Alfredo score 1) Diet: Regular Dispo: Place in observation, expect patient will be returning to home with [facility] follow-up in the next day or so Code(s): R51.9 - HEADACHE, UNSPECIFIED Telemedicine Encounter - Telemedicine Encounter Telemedicine Encounter: "The entirety of this encounter was performed via Telemedicine" This visit was performed using real-time audio and video connection between my location and thepatients locationwith the assistance of a surrogateat the patients location. Written or verbal consent was obtained from the patient /guardian to perform this visit usingsynchronoustelemedicine technology. Any patient questions regarding the telemedicine interaction were answered.
[2024-02-16] MEDS: NON-FORMULARY ITEM (Propranolol Hcl [Propranolol Hcl Er] 60 MG Cap.Sa.24h) PO SCH (22:35)
[2024-02-17 04:45] LABS: Hematocrit 46.4 % (40.1-51.0); Hemoglobin 15.5 g/dL (13.7-17.5); Mean Cell Volume 90.8 fL (79.0-92.2); Mean Corpuscular Hemoglobin 30.3 pg (25.7-32.2); Mean Corpuscular Hgb Concent. 33.4 g/dL (32.3-36.5); Platelet Count 283 x10^3/uL (163-337); Red Blood Count 5.11 x10^6/uL (4.63-6.08); Red Cell Distribution Width 13.4 % (11.6-14.4); White Blood Count 9.9 x10^3/uL (4.23-9.07)
[2024-02-17 05:09] LABS: ANION GAP 12.4 MEQ/L (5-15); Calcium 9.3 mg/dL (8.4-10.2); Creatinine 1 1.22 mg/dL (0.66-1.25); EST GLOMERULAR FILTRATION RATE 73.6 ML/MIN; Potassium 3.8 mmol/L (3.5-5.1)
--- NOTE | 2024-02-17 05:14 | PCM.NOTE ---
Date and Time: 02/17/24 0508 Subjective Assessment: HPI: is a 48 year old male with history of chronic headache and anxiety, here with new right facial twitching and droop. Patient notes that he has had a history for the last 2 years of left-sided headache, with burning pain radiating down his shoulder to the left arm. He notes that it is worse when he smokes, although is often present even when he quit smoking. Often it is associated with anxiety, with increased heart rate and blood pressure at that time. On one occasion, she noted a little bit of presyncope/gait instability, and his Apple Watch alerted him to a heart rhythm abnormality. He was started on propranolol 1 month ago, with a decrease in the anxiety and decreased intensity of his headaches. However, for the last 3 days, he has had new right sided facial burning sensation, as well as the impression that it was twitching or twisting, with a more "relaxed" appearance to his muscles. [facility], and they told him to come to the ER for evaluation. He denies any other motor symptoms, and no other numbness or paresthesias. He smokes less than a pack a da y, and declined nicotine patch. He has no history of neurologic disease. 02/17/24: Met with patient bedside. Endorses continued right sided facial tingling. He reports two years of left sided headache, left shoulder pain, and left arm weakness. He additionally reports that he has occasions where he gets "adrenal splurges" in which he has increased head pain, increased heart rate, flushing, feelings of anxiety, and hypertension. Plan for MRI of the brain and cervical spine. Will evaluate for pheochromacytoma with labwork- patient will need to follow up OP with results as they may take several days for results. Denies fever,cough, sob, cp, abdominal pain, PITTMAN, dizziness, N/V/D. 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, nml station & gait, sensation nml, motor weakness (Left arm 4/5 strength) Skin Exam: normal color Eye Exam: PERRL Ears, Nose, Throat Exam: normal ENT inspection Neck Exam: normal inspection Respiratory Exam: normal breath sounds, lungs clear Cardiovascular Exam: regular rate/rhythm, normal heart sounds Gastrointestinal/Abdomen Exam: soft, normal bowel sounds Extremity Exam: normal inspection Back Exam: normal inspection Male Genitalia Exam: deferred Rectal Exam: deferred Objective Data Vital Signs: Vital Signs - 24 hr Temp Pulse Resp BP BP Pulse Ox 02/17/24 04:00 56 L 19 110/59 91 L 02/16/24 23:59 97.3 F 61 17 112/53 96 02/16/24 20:17 97.8 F 63 18 124/94 96 02/16/24 19:59 98 02/16/24 19:01 132/81 02/16/24 18:30 106/67 02/16/24 18:00 64 19 125/74 94 L 02/16/24 17:30 65 20 110/70 96 02/16/24 17:20 66 24 97 02/16/24 17:16 97 02/16/24 16:30 124/75 02/16/24 16:00 69 19 125/71 96 02/16/24 15:30 73 21 124/68 94 L 02/16/24 15:29 74 18 94 L 02/16/24 15:20 78 18 95 02/16/24 15:10 79 25 H 94 L 02/16/24 15:03 95 02/16/24 15:01 95 02/16/24 14:36 98.2 F 75 22 132/84 98 02/16/24 14:35 132/84 Pain Assessment - Last Documented Pain Intensity 0 Intake and Output: Intake & Output 02/14/24 02/15/24 02/16/24 02/17/24 11:59 11:59 11:59 11:59 Intake Total 860 Balance 860 Weight 91.5 kg Lab Results: Lab Results-Last 24 Hours 02/16/24 02/16/24 02/16/24 Range/Units 15:00 15:05 15:05 WBC 9.6 H (4.23-9.07) x10^3/uL RBC 5.33 (4.63-6.08) x10^6/uL Hgb 16.2 (13.7-17.5) g/dL Hct 48.0 (40.1-51.0) % MCV 90.1 (79.0-92.2) fL MCH 30.4 (25.7-32.2) pg MCHC 33.8 (32.3-36.5) g/dL RDW 13.4 (11.6-14.4) % Plt Count 308 (163-337) x10^3/uL MPV 9.6 (9.4-12.4) fL Gran % 53.2 (34.0-67.9) % Immature Gran % (Auto) 0.4 (0.001-0.429) % Nucleat RBC Rel Count 0.0 (0.00-0.2) % Eos # (Auto) 0.38 (0.04-0.54) x10^3/uL Immature Gran # (Auto) 0.04 H (0.001-0.031) x10^3u/L Absolute Lymphs (auto) 3.15 (1.32-3.57) x10^3/uL Absolute Monos (auto) 0.83 H (0.30-0.82) x10^3/uL Absolute Nucleated RBC 0.00 (0.00-0.012) x10^3u/L Lymphocytes % 32.8 (21.8-53.1) % Monocytes % 8.6 (5.3-12.2) % Eosinophils % 4.0 (0.8-7.0) % Basophils % 1.0 (0.2-1.2) % Absolute Granulocytes 5.10 (1.78-5.38) x10^3/uL Basophils # 0.10 H (0.01-0.08) x10^3/uL Sodium 143 (135-145) mmol/L Potassium 4.6 (3.5-5.1) mmol/L Chloride 107 (98-107) mmol/L Carbon Dioxide 24 (22-30) mmol/L Anion Gap 16.7 H (5-15) MEQ/L BUN 19 (9-20) mg/dL Creatinine 1.32 H (0.66-1.25) mg/dL Estimated GFR 67.0 ML/MIN Glucose 129 H (74-106) mg/dL Calcium 9.9 (8.4-10.2) mg/dL Total Bilirubin 0.50 (0.2-1.3) mg/dL AST 33 (17-59) U/L ALT 41 (0-50) U/L Alkaline Phosphatase 61 (38-126) U/L Troponin I < 0.012 (0.000-0.033) ng/mL Serum Total Protein 7.7 (6.3-8.2) g/dL Albumin 4.6 (3.5-5.0) g/dL 02/16/24 02/17/24 Range/Units 19:30 04:40 WBC 9.9 H (4.23-9.07) x10^3/uL RBC 5.11 (4.63-6.08) x10^6/uL Hgb 15.5 (13.7-17.5) g/dL Hct 46.4 (40.1-51.0) % MCV 90.8 (79.0-92.2) fL MCH 30.3 (25.7-32.2) pg MCHC 33.4 (32.3-36.5) g/dL RDW 13.4 (11.6-14.4) % Plt Count 283 (163-337) x10^3/uL MPV 10.0 (9.4-12.4) fL Gran % (34.0-67.9) % Immature Gran % (Auto) (0.001-0.429) % Nucleat RBC Rel Count (0.00-0.2) % Eos # (Auto) (0.04-0.54) x10^3/uL Immature Gran # (Auto) (0.001-0.031) x10^3u/L Absolute Lymphs (auto) (1.32-3.57) x10^3/uL Absolute Monos (auto) (0.30-0.82) x10^3/uL Absolute Nucleated RBC (0.00-0.012) x10^3u/L Lymphocytes % (21.8-53.1) % Monocytes % (5.3-12.2) % Eosinophils % (0.8-7.0) % Basophils % (0.2-1.2) % Absolute Granulocytes (1.78-5.38) x10^3/uL Basophils # (0.01-0.08) x10^3/uL Sodium (135-145) mmol/L Potassium (3.5-5.1) mmol/L Chloride (98-107) mmol/L Carbon Dioxide (22-30) mmol/L Anion Gap (5-15) MEQ/L BUN (9-20) mg/dL Creatinine (0.66-1.25) mg/dL Estimated GFR ML/MIN Glucose (74-106) mg/dL Calcium (8.4-10.2) mg/dL Total Bilirubin (0.2-1.3) mg/dL AST (17-59) U/L ALT (0-50) U/L Alkaline Phosphatase (38-126) U/L Troponin I < 0.012 (0.000-0.033) ng/mL Serum Total Protein (6.3-8.2) g/dL Albumin (3.5-5.0) g/dL Radiology Exams: Radiology Procedures Category Date Time Status CHEST 1 VIEW (PORTABLE) Stat Exams 02/16/24 14:[address] ANGIOGRAPHY NECK [CT] Stat Exams 02/16/24 16:56 Taken CTA HEAD W AND/OR WO CONTRAST [CT] Stat Exams 02/16/24 14:52 Taken HEAD WITHOUT CONTRAST [CT] Stat Exams 02/16/24 16:13 Taken MRI BRAIN W/O CONTRAST [MRI] Routine Exams 02/16/24 20:48 Ordered Assessment/Plan (1) Right facial pain Current Visit: Yes Status: Acute Assessment & Plan: -Right facial pain/weakness patient has chronic left-sided headache with radicular distribution of pain, but now presenting with new onset of right facial pain and possible weakness. Upon arrival to the ED, he has no further symptoms on exam. Concern for possible CVA, with main risk factor being his continued smoking and intermittent hypertension. (Although he appears to be normotensive at this time.) differential also includes C-spine disease with concern for radiculopathy on the left side already. Less likely inflammatory nerve disease or MS. Neurology consulted, no need for acute intervention -tele -MRI brain/Cspine pending -lipid panel pending -Further evaluation pending MRI results Code(s): R51.9 - HEADACHE, UNSPECIFIED (2) Elevated serum creatinine Current Visit: Yes Status: Acute Assessment & Plan: -resolved -continue to monitor renal/lytes -avoid nephrotoxic medications Code(s): R79.89 - OTHER SPECIFIED ABNORMAL FINDINGS OF BLOOD CHEMISTRY (3) Chronic anxiety Current Visit: Yes Status: Acute Assessment & Plan: following with [facility], and recently started on propranolol. Of note, this tends to mask the symptoms of anxiety without necessarily treating the underlying cause. However, patient notes improvement in quality of life while on this. Continue propranolol -labs for catecholamines, [facility] rand-pheochromocytoma panel Code(s): F41.9 - ANXIETY DISORDER, UNSPECIFIED (4) Essential hypertension Current Visit: No Status: Acute Assessment & Plan: -stable Code(s): I10 - ESSENTIAL (PRIMARY) HYPERTENSION
[2024-02-17 07:31] VITALS: RESP 18
--- NOTE | 2024-02-17 08:46 | XRAY ---
Indication: TIA. Pain. Normal CT head without contrast exam. Conventional contrast enhanced CTA neck performed using 80 cc Isovue 370 contrast. 2-D sagittal and coronal reformatted images obtained. Additional 3-D reformatted images obtained using separate workstation. Comparison: None Visualized aortic arch is normal in CTA appearance with widely patent branch right brachiocephalic, left common carotid, and left subclavian arteries. Also normal CTA appearance to the common carotid, carotid bulb, internal carotid, external carotid, and vertebral arteries bilaterally. Visualized soft tissues demonstrates scattered centimeter/subcentimeter cervical lymph nodes bilaterally, none pathologically enlarged. Prominent palatine tonsils narrows the oropharynx. Parotid, semitubular, and thyroid gland bilaterally symmetric. Supra and infraglottic airway widely patent. Normal epiglottis. Osseous structures/cervical spine intact and unremarkable. Lung apices clear. Impression: 1. Normal CTA neck with contrast exam. 2. Incidental prominent palatine tonsils.
--- NOTE | 2024-02-17 08:50 | XRAY ---
Indication: TIA. Pain. Normal CT head without contrast exam and normal CTA neck with contrast exam. Conventional contrast enhanced CTA head performed using 80 cc Isovue 370 contrast. 2-D sagittal and coronal reformatted images obtained. Additional 3-D reformatted images obtained using separate workstation. Comparison: None Distal internal carotid arteries are bilaterally symmetric and normal in CTA appearance. Normal carotid terminus with normal branching A1 and M1 segments bilaterally. The visualized anterior cerebral, middle cerebral, anterior communicating, and posterior communicating are also normal in CTA appearance. Posterior circulation demonstrates normal CTA appearance to the distal left/right vertebral, basilar, left/right posterior cerebral, and left/right superior cerebellar arteries. Venous sinuses/drainage unremarkable. Brain parenchyma is negative for abnormal enhancing intra-or extra-axial mass. Impression: Normal CTA head with contrast exam.
[2024-02-17] MEDS: ECOTRIN 81 MG PO SCH (10:08)
[2024-02-17] MEDS: NON-FORMULARY ITEM PO SCH (10:09)
--- NOTE | 2024-02-17 10:37 | XRAY ---
Indication: Pain. Facial droop. Multiple contiguous axial images obtained through the head without contrast. Comparison: January 01, 2024 Normal appearing brain parenchyma, ventricles, and bony calvarium. Again incidental 2 cm right maxillary sinus polyp/retention cyst. Remaining visualized paranasal sinuses and mastoid air cells are clear. Impression: Stable normal CT head without contrast exam. Again incidental right maxillary sinus polyp/retention cyst.
[2024-02-17 11:46] VITALS: BP 123/65; PULSE 69; TEMP 97.5; O2SAT 94
--- NOTE | 2024-02-17 14:36 | XRAY ---
Indication: Right facial tingling/droop. Normal CTA neck exam. Sagittal and axial MRI cervical spine performed without contrast using T1 and T2 weighted sequences. Comparison: None Sagittal images demonstrate normal alignment. Discs are normal in MRI signal and morphology. No acute fracture, suspicious bony lesions, or abnormal bone marrow signal. Spinal cord is normal in course and caliber without signal abnormality. Normal appearing cervical junction. Axial images through C2-T1 disc levels are negative for disc herniation, spinal canal stenosis, or foraminal stenosis. Impression: Normal MRI cervical spine.
--- NOTE | 2024-02-17 14:52 | XRAY ---
Indication: Right facial droop. CVA. Normal CT head. Normal CTA neck. Normal CTA head. Sagittal, coronal, and axial MRI brain performed without contrast using T1, T2, FLAIR, diffusion, and ADC sequences. Comparison: None Ventriculosulcal pattern appears symmetric. A few tiny periventricular degenerative micro-ischemia signal bilaterally. No acute intracranial hemorrhage, abnormal extra-axial fluid collection, or mass effect. Diffusion images are negative for restricted signal. Fourth ventricle is midline without hydrocephalus. 7/8 cranial nerve complex bilaterally symmetric. Normal flow void signal within the major intracerebral circulation. Normal appearing craniocervical junction and sella turcica. Incidental 2 cm right maxillary sinus polyp/retention cyst. Impression: 1. Minimal degenerative micro-ischemia within normal limits for patient's age. 2. Incidental right maxillary sinus polyp/retention cyst. 3. Remaining MRI brain is negative.
--- NOTE | 2024-02-17 15:44 | PCM.DS ---
Discharge Summary Date of Admission: 02/16/24 20:05 Date of Discharge: 02/17/24 Admitting Physician: EREN DELACRUZ MD Primary Care Provider: NO FAMILY DOCTOR Allergies Allergies hydrocodone Allergy (Verified 02/16/24 14:51) soft drinks Allergy (Uncoded 02/16/24 14:51) [facility] Summary - Hospital Course Hospital Course: HPI: is a 48 year old male with history of chronic headache and anxiety, here with new right facial twitching and droop. Patient notes that he has had a history for the last 2 years of left-sided headache, with burning pain radiating down his shoulder to the left arm. He notes that it is worse when he smokes, although is often present even when he quit smoking. Often it is associated with anxiety, with increased heart rate and blood pressure at that time. On one occasion, she noted a little bit of presyncope/gait instability, and his Apple Watch alerted him to a heart rhythm abnormality. He was started on propranolol 1 month ago, with a decrease in the anxiety and decreased intensity of his headaches. However, for the last 3 days, he has had new right sided facial burning sensation, as well as the impression that it was twitching or twisting, with a more "relaxed" appearance to his muscles. [facility] and they told him to come to the ER for evaluation. He denies any other motor symptoms, and no other numbness or paresthesias. He smokes less than a pack a day, and declined nicotine patch. He has no history of neurologic disease. MRI brain and cervical spine negative for acute findings. He reports two years of left sided headache, left shoulder pain, and left arm weakness. He additionally reports that he has occasions where he gets "adrenal splurges" in which he has increased head pain, increased heart rate, flushing, feelings of anxiety, and hypertension. Plan for MRI of the brain and cervical spine. Will evaluate for pheochromocytoma with labwork- patient will need to follow up OP with results as they may take several days for results. Patient to follow up on labwork with Dr. Russell at [facility]. Patient also advised to follow with neurology. Patient requesting discharge home. Stable for discharge. Discharge Note Follow Up: Dr. Russell Latest Assessment & Plan (1) Right facial pain Current Visit: Yes Status: Acute Assessment & Plan: -Right facial pain/weakness patient has chronic left-sided headache with radicular distribution of pain, but now presenting with new onset of right facial pain and possible weakness. Upon arrival to the ED, he has no further symptoms on exam. Concern for possible CVA, with main risk factor being his continued smoking and intermittent hypertension. (Although he appears to be normotensive at this time.) differential also includes C-spine disease with concern for radiculopathy on the left side already. Less likely inflammatory nerve disease or MS. Neurology consulted, no need for acute intervention -tele -MRI brain/Cspine negative for acute findings -lipid panel pending Code(s): R51.9 - HEADACHE, UNSPECIFIED (2) Elevated serum creatinine Current Visit: Yes Status: Acute Assessment & Plan: -resolved -continue to monitor renal/lytes -avoid nephrotoxic medications Code(s): R79.89 - OTHER SPECIFIED ABNORMAL FINDINGS OF BLOOD CHEMISTRY (3) Chronic anxiety Current Visit: Yes Status: Acute Assessment & Plan: [facility], and recently started on propranolol. Of note, this tends to mask the symptoms of anxiety without necessarily treating the underlying cause. However, patient notes improvement in quality of life while on this. Continue propranolol -labs for catecholamines, [facility] rand-pheochromocytoma panel - follow up on results as OP - may need 24 hour urine and further labs Code(s): F41.9 - ANXIETY DISORDER, UNSPECIFIED (4) Essential hypertension Current Visit: No Status: Acute Assessment & Plan: -stable I spent 35 minutes [id number] with the patient on the day of discharge perform ing discharge exam, discussing hospital stay and discharge instructions with patient and caregivers, preparation of discharge records, prescriptions & referral forms and addressing any questions/concerns the patient had as documented above. - Vitals & Intake/Output Vital Signs: Vital Signs Temperature 97.5 F 02/17/24 11:45 Pulse Rate 69 02/17/24 11:45 Respiratory Rate 18 02/17/24 11:45 Blood Pressure 123/65 02/17/24 11:45 O2 Sat by Pulse Oximetry 94 L 02/17/24 11:45 Intake & Output: Intake & Output 02/15/24 02/16/24 02/17/24 02/18/24 11:59 11:59 11:59 11:59 Intake Total 1100 240 Balance 1100 240 Weight 91.5 kg - Lab Result Diagrams: 02/17/24 04:40 02/17/24 04:40 Lab Results-Last 24 Hrs: Lab Results-Last 24 Hours 02/16/24 02/16/24 02/16/24 Range/Units 15:05 15:05 19:30 WBC (4.23-9.07) x10^3/uL RBC (4.63-6.08) x10^6/uL Hgb (13.7-17.5) g/dL Hct (40.1-51.0) % MCV (79.0-92.2) fL MCH (25.7-32.2) pg MCHC (32.3-36.5) g/dL RDW (11.6-14.4) % Plt Count (163-337) x10^3/uL MPV (9.4-12.4) fL Sodium 143 (135-145) mmol/L Potassium 4.6 (3.5-5.1) mmol/L Chloride 107 (98-107) mmol/L Carbon Dioxide 24 (22-30) mmol/L Anion Gap 16.7 H (5-15) MEQ/L BUN 19 (9-20) mg/dL Creatinine 1.32 H (0.66-1.25) mg/dL Estimated GFR 67.0 ML/MIN Glucose 129 H (74-106) mg/dL Calcium 9.9 (8.4-10.2) mg/dL Total Bilirubin 0.50 (0.2-1.3) mg/dL AST 33 (17-59) U/L ALT 41 (0-50) U/L Alkaline Phosphatase 61 (38-126) U/L Troponin I < 0.012 < 0.012 (0.000-0.033) ng/mL Serum Total Protein 7.7 (6.3-8.2) g/dL Albumin 4.6 (3.5-5.0) g/dL Triglycerides (30-150) mg/dL Cholesterol (50-200) mg/dL LDL Cholesterol (30-100) mg/dL HDL Cholesterol (40-60) mg/dL Heart Disease Risk Ratio 02/17/24 02/17/24 02/17/24 Range/Units 04:40 04:40 04:40 WBC 9.9 H (4.23-9.07) x10^3/uL RBC 5.11 (4.63-6.08) x10^6/uL Hgb 15.5 (13.7-17.5) g/dL Hct 46.4 (40.1-51.0) % MCV 90.8 (79.0-92.2) fL MCH 30.3 (25.7-32.2) pg MCHC 33.4 (32.3-36.5) g/dL RDW 13.4 (11.6-14.4) % Plt Count 283 (163-337) x10^3/uL MPV 10.0 (9.4-12.4) fL Sodium 141 (135-145) mmol/L Potassium 3.8 (3.5-5.1) mmol/L Chloride 108 H (98-107) mmol/L Carbon Dioxide 24 (22-30) mmol/L Anion Gap 12.4 (5-15) MEQ/L BUN 17 (9-20) mg/dL Creatinine 1.22 (0.66-1.25) mg/dL Estimated GFR 73.6 ML/MIN Glucose 120 H (74-106) mg/dL Calcium 9.3 (8.4-10.2) mg/dL Total Bilirubin (0.2-1.3) mg/dL AST (17-59) U/L ALT (0-50) U/L Alkaline Phosphatase (38-126) U/L Troponin I (0.000-0.033) ng/mL Serum Total Protein (6.3-8.2) g/dL Albumin (3.5-5.0) g/dL Triglycerides 266 H (30-150) mg/dL Cholesterol 146 (50-200) mg/dL LDL Cholesterol 107 H (30-100) mg/dL HDL Cholesterol 21 L (40-60) mg/dL Heart Disease Risk Ratio 7.0 - Radiology Exams Ordered Rad Exams-Entire Visit: Radiology Procedures Category Date Time Status CHEST 1 VIEW (PORTABLE) Stat Exams 02/16/24 14:[address] ANGIOGRAPHY NECK [CT] Stat Exams 02/16/24 16:56 Completed CTA HEAD W AND/OR WO CONTRAST [CT] Stat Exams 02/16/24 14:52 Completed HEAD WITHOUT CONTRAST [CT] Stat Exams 02/16/24 16:13 Completed MRI BRAIN W/O CONTRAST [MRI] Routine Exams 02/17/24 13:00 Completed MRI C-SPINE W/O CONTRAST [MRI] Routine Exams 02/17/24 07:30 Completed - Procedures and Test Procedures and Tests throughout Hospitalization: Therapy Orders & Screens 02/16/24 21:46 BiPap/CPAP ROUTINE Comment: Diagnosis: Facial twitching and droop Discharge Exam General Appearance: no apparent distress Neurologic Exam: alert, oriented x 3, cooperative, disease case manager II-XII nml as tested, normal mood/affect, nml station & gait, motor weakness (LUE 4/5 strength) Eye Exam: PERRL Ears, Nose, Throat Exam: normal ENT inspection Neck Exam: normal inspection Respiratory Exam: normal breath sounds, lungs clear Cardiovascular Exam: regular rate/rhythm, normal heart sounds Gastrointestinal/Abdomen Exam: soft, normal bowel sounds Male Genitalia Exam: deferred Rectal Exam: deferred Back Exam: normal inspection Extremity Exam: normal inspection Skin Exam: normal color Final Diagnosis/Problem List - Final Discharge Diagnosis/Problem (1) Right facial pain Current Visit: Yes Status: Acute Code(s): R51.9 - HEADACHE, UNSPECIFIED (2) Elevated serum creatinine Current Visit: Yes Status: Acute Code(s): R79.89 - OTHER SPECIFIED ABNORMAL FINDINGS OF BLOOD CHEMISTRY (3) Chronic anxiety Current Visit: Yes Status: Acute Code(s): F41.9 - ANXIETY DISORDER, UNSPECIFIED (4) Essential hypertension Current Visit: No Status: Acute Code(s): I10 - ESSENTIAL (PRIMARY) HYPERTENSION - Discharge Disposition: Home, Self-Care Condition: Stable Prescriptions: Continue gemfibroziL [Gemfibrozil] 600 mg PO DAILY Propranolol HCl [Propranolol HCl ER] 60 mg PO BID Aspirin EC 81 mg [Ecotrin 81 mg] 81 mg PO DAILY Instructions: Transient ischemic attack Follow up with: BON RUSSELL MD [ACTIVE STAFF] - 02/24/24 2:15 pm ()
== END 2024-02-17 17:30 | disposition home or self-care (01) ==
LOC: ED 14:34 → MED SURG 20:05
PROVIDERS: ADMIT Internal Medicine; ATTEND Internal Medicine
DX: R51.9 Headache, unspecified (principal); F17.200 Nicotine dependence, unspecified, uncomplicated; F41.9 Anxiety disorder, unspecified; R79.89 Other specified abnormal findings of blood chemistry; I10 Essential (primary) hypertension; Z79.899 Other long term (current) drug therapy
CPT/HCPCS: 36000; 36415; 70450; 70496; 70498; 70551; 71045; 72141; 80048; 80053; 80061; 83721; 84484; 85025; 85027; 93005; 93041; 94660; 94760; 99285; Q3014; 93268; A9270-GY; G0378